=== PATIENT | male | born 1960 | race Caucasian/White ===

== ENCOUNTER 2017-02-17 07:41 | Outpatient (CLI) | payer MEDICAID, OTHER ==
[2017-02-17 12:20] LABS: BASOPHILS # (AUTO) 0.1 10^3/uL (0.0-0.1); BASOPHILS % (AUTO) 0.8 %; EOSINOPHILS # (AUTO) 0.2 10^3/uL (0.0-0.7); EOSINOPHILS % (AUTO) 2.9 %; HCT - HEMATOCRIT 44.6 % (42.0-52.0); HGB - HEMOGLOBIN 15.3 g/dL (14.0-18.0); LYMPHOCYTES # (AUTO) 2.2 10^3/uL (1.5-3.5); LYMPHOCYTES % (AUTO) 31.1 %; MEAN CORPUSCULAR HEMOGLOBIN 32.9 pg (27.0-31.0); MEAN CORPUSCULAR HGB CONC 34.4 g/dL (32.0-36.0); MEAN CORPUSCULAR VOLUME 95.9 fL (80.0-94.0); MEAN PLATELET VOLUME 7.7 fL (7.4-11.4); MONOCYTES # (AUTO) 0.6 10^3/uL (0.0-1.0); MONOCYTES % (AUTO) 8.8 %; NEUTROPHILS # (AUTO) 4.1 10^3/uL (1.5-6.6); NEUTROPHILS % (AUTO) 56.4 %; NUCLEATED RED BLOOD CELLS AUTO 0.1 /100WBC; RED BLOOD COUNT 4.66 10^6/uL (4.70-6.10); RED CELL DISTRIBUTION WIDTH 13.8 % (12.0-15.0); UNCORRECTED WHITE BLOOD COUNT 7.2 x10^3/uL; WHITE BLOOD COUNT 7.2 x10^3/uL (4.8-10.8)
[2017-02-17 12:42] LABS: ALBUMIN/GLOBULIN RATIO 1.3 (1.0-2.2); BILIRUBIN,TOTAL 1.1 mg/dL (0.2-1.0); BUN - BLOOD UREA NITROGEN 19 mg/dL (6-20); CALCIUM 9.1 mg/dL (8.5-10.3); CARBON DIOXIDE - CO2 28 mmol/L (21-32); CHLORIDE 100 mmol/L (101-111); CHOL/HDL RATIO 5.1 (<5.0); CHOLESTEROL 225 mg/dL; CREATININE 1.3 mg/dL (0.6-1.2); GFR - MDRD 57 (>89); GLUCOSE 104 mg/dL (70-100); HDL CHOLESTEROL 44 mg/dL; POTASSIUM 3.5 mmol/L (3.5-5.0); SODIUM 135 mmol/L (135-145); TOTAL PROTEIN 7.2 g/dL (6.7-8.2); TRIGLYCERIDES 407 mg/dL
[2017-02-17 13:36] LABS: LDL CHOLESTEROL,DIRECT 117 mg/dL
== END 2017-02-17 07:42 | disposition home or self-care (01) ==
LOC: LAB.N 07:41
PROVIDERS: ATTEND Physician Assistant Medical
DX: J44.9 Chronic obstructive pulmonary disease, unspecified (principal); I10 Essential (primary) hypertension; K21.9 Gastro-esophageal reflux disease without esophagitis; F31.9 Bipolar disorder, unspecified; K31.7 Polyp of stomach and duodenum; K63.5 Polyp of colon; Z79.899 Other long term (current) drug therapy
CPT/HCPCS: 36415; 80053; 80061; 84443; 85025

== ENCOUNTER 2017-05-20 08:00 | Outpatient (CLI) | payer MEDICAID ==
[2017-05-20 19:42] LABS: FOLATE 9.66 ng/mL (5.90 - >24.8)
== END 2017-05-20 08:01 | disposition home or self-care (01) ==
LOC: LAB.WCP 08:00
PROVIDERS: ATTEND Physician Assistant Medical
DX: E55.9 Vitamin D deficiency, unspecified (principal); D53.9 Nutritional anemia, unspecified; E51.9 Thiamine deficiency, unspecified
CPT/HCPCS: 36415; 82306; 82607; 82746; 84425

== ENCOUNTER 2017-11-25 14:28 | Emergency (ER) | payer MEDICAID ==
[2017-11-25 14:37] VITALS: BP 146/103
--- NOTE | 2017-11-25 15:37 | XRAY Report ---
Reason: injury Procedure Date: 11/25/2017 Accession Number: [id number] / [id number] Procedure: XR - Humerus LT CPT Code: FULL RESULT: EXAM: LEFT HUMERUS RADIOGRAPHY EXAM DATE: 11/25/2017 03:29 PM. CLINICAL HISTORY: Pain after throwing a heavy object COMPARISON: None. TECHNIQUE: 2 views. FINDINGS: Bones: No fractures or bone lesions. Smooth periosteal thickening of the lateral mid humerus is nonspecific, but likely a chronic finding. Joints: No effusions or subluxations in the visualized shoulder or elbow joints. Soft Tissues: No soft tissue swelling. IMPRESSION: No acute findings RADIA
--- NOTE | 2017-11-25 15:42 | ED Physician Documentation ---
PD HPI UPPER EXT INJURY - Stated complaint Stated Complaint: L ARM INJURY - Chief complaint Chief Complaint: Ext Problem - History obtained from History obtained from: Patient - History of Present Illness Location: Left, Arm Type of injury: Twist Where injury occurred: Home Timing - onset: How many days ago (7) Timing - duration: Days (7) Timing - details: Abrupt onset, Still present Improved by: Rest, Ice, Immobilization Worsened by: Moving, Palpating Associated symptoms: Swelling, Discolored. No: Numbness, Tingling Contributing factors: No: Anticoagulated Similar symptoms before: Has not had sx before Recently seen: Not recently seen - Additonal information Additional information: 57-year-old previously well male was throwing debris behind him with both of his arms when he picked up something with his left arm and threw it behind him. He held felt a sharp pain in his shoulder and since that time he has had a deformity to the body of the biceps muscle and a lot of swelling and ecchymosis. He has been able to use his arm at work and does have fair strength but he does have pain with certain movements. Review of Systems Constitutional: denies: Fever, Chills Eyes: denies: Decreased vision Ears: denies: Ear pain Nose: denies: Congestion Throat: denies: Sore throat Respiratory: denies: Cough GI: denies: Vomiting : denies: Dysuria Skin: denies: Rash Musculoskeletal: reports: Extremity pain. denies: Neck pain, Back pain Neurologic: denies: Generalized weakness, Focal weakness, Numbness PD PAST MEDICAL HISTORY - Allergies Allergies/Adverse Reactions: Allergies Allergy/AdvReac Type Severity Reaction Status Date / Time avocado Allergy Unknown Verified 11/25/17 14:38 PD ED PE NORMAL - Vitals Vital signs reviewed: Yes (hypertensive) - General General: Alert and oriented X 3, No acute distress, Well developed/nourished - HEENT HEENT: Atraumatic, PERRL, EOMI - Neck Neck: Supple, no meningeal sign, No bony TTP - Respiratory Respiratory: No respiratory distress - Derm Derm: Normal color, Warm and dry, No rash - Extremities Extremities: Other (There is a deformity to the biceps with overlying ecchymosis and a "teodoro" muscle to the distal biceps. There is proximal defect consistent with a biceps tendon rupture. Blood has tracked into the forearm and discolored the skin to almost black. There is no specific tenderness to the forearm and the distal n/v is intact. There is nearly normal ROM of the shoulder. 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, No motor deficit, No sensory deficit, Normal speech Eye Opening: Spontaneous Motor: Obeys Commands Verbal: Oriented GCS Score: 15 - Psych Psych: Normal mood, Normal affect Results - Vitals Vitals: Vital Signs - 24 hr 11/25/17 14:34 Temperature 36.7 C Heart Rate 78 Respiratory 18 Rate Blood Pressure 146/103 H O2 Saturation 98 Oxygen O2 Source Room air - Rads (name of study) humerus left Radiology: Prelim report reviewed (Impression: No acute findings.), EMP read indepedently, See rad report PD MEDICAL DECISION MAKING - ED course Complexity details: reviewed results, re-evaluated patient, considered differential, d/w patient ED course: 57-year-old male clinically has a ruptured biceps tendon and he is placed into a sling and given a note for modified duty to include limited use of the left arm for 2 weeks. I have given him follow-up for orthopedics. I discussed with the patient patient the conservative nature of treatment and the likelihood that he will require physical therapy to regain full strength. - Sepsis Event Vital Signs: Vital Signs - 24 hr 11/25/17 14:34 Temperature 36.7 C Heart Rate 78 Respiratory 18 Rate Blood Pressure 146/103 H O2 Saturation 98 Oxygen O2 Source Room air Departure - Departure Disposition: 01 Home, Self Care Clinical Impression: Biceps tendon rupture, proximal Qualifiers: Encounter type: initial encounter Laterality: left Qualified Code(s): S46.212A - Strain of muscle, fascia and tendon of other parts of biceps, left arm, initial encounter Condition: Stable Instructions: Biceps Tendonitis Proximal Follow-Up: Nakul Hollis PA-C [Primary Care Provider] - [facility] [Provider Group] Forms: Activity restrictions
== END 2017-11-25 16:12 | disposition home or self-care (01) ==
LOC: ED 14:28
DX: S46.212A Strain of muscle, fascia and tendon of other parts of biceps, left arm, initial encounter (principal); X50.0XXA Overexertion from strenuous movement or load, initial encounter; Y93.H2 Activity, gardening and landscaping; Y92.007 Garden or yard of unspecified non-institutional (private) residence as the place of occurrence of the external cause
CPT/HCPCS: 99282; 99283

== ENCOUNTER 2018-01-18 23:54 | Day surgery (SDC) | payer MEDICAID ==
--- NOTE | 2018-01-19 00:45 | ED Physician Documentation ---
PD HPI NVD - Stated complaint Stated Complaint: CANT SWALLOW - Chief complaint Chief Complaint: General - History obtained from History obtained from: Patient - History of Present Illness Timing - onset: How many hours ago (5-6), Today Timing - duration: Hours (He was eating steak and potatoes for dinner approximately 5-6 hours ago and while eating a piece of steak felt it get stuck. He has had this happen temporarily for a few minutes or more at a time 3 or 4 times over the last couple of months. It would pass after a short time. However this evening he continued this have the stuck feeling and he was vomiting up his saliva periodically. This continued through the evening and finally comes to the ER for evaluation. He states he has tried sips of water but vomited up. He is episodically vomiting his clear saliva. There is no blood noted. He had been feeling otherwise okay earlier in the day.) Timing - details: Abrupt onset, Still present Associated symptoms: Abdominal pain (He has a feeling of crampy pain in the lower esophagus and chest area. Its briefly improved with vomiting.). No: Fever, Hematemesis, Loss of appetite Contributing factors: No: Sick contact, Bad food, Travel Similar symptoms before: Diagnosis (esophageal blockage many years ago with scope for it. Had a dilatation at that time. Had another esophageal dilatation in 2010 when he had EGD for eval of stomach pain. It was tight but did not have achalasia symptoms at that time. He had been doing okay until the past couple of months with few brief episodes of food stuck. Now tonight with obstruction.) Recently seen: Not recently seen Review of Systems Constitutional: denies: Fever, Chills, Myalgias Nose: denies: Rhinorrhea / runny nose, Congestion Throat: denies: Sore throat Cardiac: denies: Palpitations Respiratory: denies: Dyspnea, Cough GI: reports: Nausea, Vomiting. denies: Abdominal Swelling, Constipation, Diarrhea, Hematemesis : denies: Dysuria, Frequency Neurologic: denies: Focal weakness, Numbness, Near syncope, Altered mental status, Headache Endocrine: denies: Easy bruising / bleeding PD PAST MEDICAL HISTORY - Past Medical History Cardiovascular: None Respiratory: None Neuro: None Endocrine/Autoimmune: None GI: GERD, Other (reflux and esophageal stricture in the past) - Allergies Allergies/Adverse Reactions: Allergies Allergy/AdvReac Type Severity Reaction Status Date / Time avocado Allergy Unknown Verified 01/19/18 00:07 - Living Situation Living Situation: reports: With spouse/s.o. Living Arrangement: reports: At home - Social History Does the pt smoke?: No Smoking Status: Never smoker - Family History Family history: reports: Non contributory PD ED PE NORMAL - Vitals Vital signs reviewed: Yes - General General: Alert and oriented X 3, Well developed/nourished, Other (appears uncomfortable and is having emesis of clear saliva periodically (every 10-15 minutes). ) - HEENT HEENT: Pharynx benign - Neck Neck: Supple, no meningeal sign, No adenopathy - Cardiac Cardiac: RRR, No murmur - Respiratory Respiratory: Clear bilaterally - Abdomen Abdomen: Normal bowel sounds, Soft, Non tender, Non distended, No organomegaly - Derm Derm: Normal color, Warm and dry - Extremities Extremities: No deformity, No tenderness to palpate, Normal ROM s pain, No edema, No calf tenderness / cord - Neuro Neuro: Alert and oriented X 3, No motor deficit, Normal speech - Psych Psych: Normal mood Results - Vitals Vitals: Vital Signs - 24 hr 01/19/18 01/19/18 01/19/18 00:03 01:33 01:46 Temperature 36.5 C Heart Rate 98 90 96 Respiratory 19 20 18 Rate Blood Pressure 154/100 H 153/101 H 149/97 H O2 Saturation 97 98 95 Oxygen O2 Source Room air - Labs Labs: Laboratory Tests 01/19/18 01/19/18 01:10 01:10 WBC 7.3 RBC 4.00 L Hgb 14.9 Hct 41.8 L MCV 104.5 H MCH 37.3 H MCHC 35.8 RDW 15.6 H Plt Count 230 MPV 7.1 L Neut # (Auto) 4.4 Lymph # (Auto) 1.7 [place] # (Auto) 0.7 Eos # (Auto) 0.3 Baso # (Auto) 0.2 H Absolute Nucleated RBC 0.00 Nucleated RBC % 0.0 Sodium 137 Potassium 3.8 Chloride 102 Carbon Dioxide 25 Anion Gap 10.0 BUN 8 Creatinine 1.0 Estimated GFR (MDRD) 77 L Glucose 109 H Calcium 8.9 Total Bilirubin 0.8 AST 42 ALT 41 Alkaline Phosphatase 79 Total Protein 7.4 Albumin 4.4 Globulin 3.0 Albumin/Globulin Ratio 1.5 Lipase 34 Ethyl Alcohol 24.3 PD MEDICAL DECISION MAKING - ED course Complexity details: re-evaluated patient (He is given IV fluids along with nitroglycerin, glucagon, morphine and then attempted easy gas crystals after the medication. He is still having inability to swallow even his saliva. I contacted 's office is on-call for surgery and he will come in to evaluate the patient for presumed EGD.), considered differential, d/w patient Departure - Departure Clinical Impression: Esophageal obstruction due to food impaction Vomiting Qualifiers: Vomiting type: unspecified Vomiting Intractability: unspecified Nausea presence: with nausea Qualified Code(s): R11.2 - Nausea with vomiting, unspecified Condition: Stable Record reviewed to determine appropriate education?: Yes
[2018-01-19] MEDS ORDERED: GLUCAGON 1 MG/ML VIAL IVP STA (00:54)
[2018-01-19] MEDS ORDERED: SODIUM CHLORIDE 0.9% 1,000 ML IV ONE (00:54)
[2018-01-19] MEDS ORDERED: ONDANSETRON 4 MG/2 ML VIAL IVP STA (00:54)
[2018-01-19] MEDS ORDERED: KETOROLAC 15 MG/ML VIAL IVP STA (00:54)
[2018-01-19] MEDS ORDERED: NITROGLYCERIN SL 0.4 MG TABLET SL STA (00:54)
[2018-01-19] MEDS ORDERED: WATER FOR INJECTION,STERILE 10 ML ONE (01:20)
[2018-01-19 01:22] LABS: BASOPHILS # (AUTO) 0.2 10^3/uL (0.0-0.1); BASOPHILS % (AUTO) 2.5 %; EOSINOPHILS # (AUTO) 0.3 10^3/uL (0.0-0.7); HGB - HEMOGLOBIN 14.9 g/dL (14.0-18.0); LYMPHOCYTES # (AUTO) 1.7 10^3/uL (1.5-3.5); MEAN CORPUSCULAR HEMOGLOBIN 37.3 pg (27.0-31.0); MEAN CORPUSCULAR HGB CONC 35.8 g/dL (32.0-36.0); MEAN CORPUSCULAR VOLUME 104.5 fL (80.0-94.0); MEAN PLATELET VOLUME 7.1 fL (7.4-11.4); MONOCYTES # (AUTO) 0.7 10^3/uL (0.0-1.0); MONOCYTES % (AUTO) 9.9 %; NEUTROPHILS # (AUTO) 4.4 10^3/uL (1.5-6.6); NEUTROPHILS % (AUTO) 60.6 %; PLT - PLATELET COUNT 230 10^3/uL (130-450); RED CELL DISTRIBUTION WIDTH 15.6 % (12.0-15.0); WHITE BLOOD COUNT 7.3 x10^3/uL (4.8-10.8)
[2018-01-19 01:36] LABS: ALBUMIN 4.4 g/dL (3.2-5.5); ALBUMIN/GLOBULIN RATIO 1.5 (1.0-2.2); BILIRUBIN,TOTAL 0.8 mg/dL (0.2-1.0); CALCIUM 8.9 mg/dL (8.5-10.3); TOTAL PROTEIN 7.4 g/dL (6.7-8.2)
[2018-01-19] MEDS ORDERED: MORPHINE 10 MG/ML VIAL IVP STA (02:35)
[2018-01-19] MEDS ORDERED: SUCCINYLCHOLINE 200 MG/10 ML VIAL IVP ONE (03:30)
[2018-01-19] MEDS ORDERED: MIDAZOLAM 2 MG/2 ML VIAL IVP ONE (03:30)
[2018-01-19] MEDS ORDERED: LIDOCAINE-MPF 2% 5 ML VIAL IM ONE (03:30)
[2018-01-19] MEDS ORDERED: PROPOFOL 200 MG/20 ML VIAL IVP ONE (03:30)
[2018-01-19] MEDS ORDERED: ONDANSETRON 4 MG/2 ML VIAL IVP ONE (03:30)
[2018-01-19] MEDS ORDERED: fentaNYL 100 MCG/2 ML VIAL IVP ONE (03:30)
--- NOTE | 2018-01-19 03:30 | ANESTHESIA ---
Pre-Anesthesia VS, & Labs - Diagnosis food bolus @esophagus - Procedure EGD, removal food bolus Vital Signs: Temp Pulse Resp BP Pulse Ox 36.5 C 95 18 163/104 H 97 01/19/18 00:03 01/19/18 03:06 01/19/18 03:06 01/19/18 03:06 01/19/18 03:06 Height 5 ft 11 in Weight (kg) 90.718 kg Body Mass Index 27.8 - NPO Last Food Intake: water and seltzer 0130 - Lab Results Current Lab Results: Laboratory Tests 01/19/18 01:10: Sodium 137, Potassium 3.8, Chloride 102, Carbon Dioxide 25, Anion Gap 10.0, BUN 8, Creatinine 1.0, Estimated GFR (MDRD) 77 L, Glucose 109 H, Calcium 8.9, Total Bilirubin 0.8, AST 42, ALT 41, Alkaline Phosphatase 79, Total Protein 7.4, Albumin 4.4, Globulin 3.0, Albumin/Globulin Ratio 1.5, Lipase 34, Ethyl Alcohol 24.3 01/19/18 01:10: WBC 7.3, RBC 4.00 L, Hgb 14.9, Hct 41.8 L, MCV 104.5 H, MCH 37.3 H, MCHC 35.8, RDW 15.6 H, Plt Count 230, MPV 7.1 L, Neut # (Auto) 4.4, Lymph # (Auto) 1.7, [place] # (Auto) 0.7, Eos # (Auto) 0.3, Baso # (Auto) 0.2 H, Absolute Nucleated RBC 0.00, Nucleated RBC % 0.0 Fish Bones: 01/19/18 01:10 01/19/18 01:10 Home Medications and Allergies Allergies/Adverse Reactions: Allergies Allergy/AdvReac Type Severity Reaction Status Date / Time avocado Allergy Unknown Verified 01/19/18 00:07 Anes History & Medical History - Medical History Cardiovascular: reports: None Pulmonary: reports: None Gastrointestinal: reports: GERD, Other (reflux and esophageal stricture in the past) Neuro: reports: None Endocrine/Autoimmune: reports: None Smoking Status: Never smoker - Surgical History General: Colonoscopy, EGD Exam General: Alert, Oriented x3, Cooperative Dental: Dentures full Upper Mouth Opening: Greater than 4 Fingerbreadths Neck Mobility: Normal Mallampati classification: I Thyromental Distance: greater than 6 cm Respiratory: Lungs clear, Normal breath sounds, No respiratory distress, No accessory muscle use Cardiovascular: Regular rate Neurological: Normal speech Mental/Cognitive Status: Alert/Oriented X3 Cognitive Status: Within normal limits Plan Anesthesia Type: General Consent for Procedure(s) Verified and Reviewed: Yes Code Status: Attempt Resuscitation ASA classification: 2-Mild systemic disease Is this case an emergency?: Yes
[2018-01-19] MEDS ORDERED: LIDO GARGLE 30 ML BOTTLE ONE (03:35)
--- NOTE | 2018-01-19 03:38 | CONSULTATION NOTE ---
Referring Provider Name of Referring Provider:: Thomas Moran MD Consult Date: 01/19/18 Chief Complaint - Chief Complaint Chief Complaint: Steak lodged in esophagus History of Present Illness - Admitted From Admitted From:: Not admitted - short stay - History Obtained From Records Reviewed: Yes History obtained from: Patient and Dr. Thomas Moran Exam Limitations: None - History of Present Illness HPI Comment/Other: Dr. Thomas Moran called and asked to evaluate this very pleasant 57-year-old gentleman after he ate Franks broil without his upper dentures in place because they do not fit. Even though he cut the meat up in very small pieces he states that it got lodged in his esophagus resulting in the patient being unable to tolerate his own saliva. The patient tells me that he has had numerous esophageal dilations in the past. The most recent was in 2010. He also suffers with gastroesophageal reflux disease and takes omeprazole. He denies hemat emesis, melena or hematochezia. As an aside he thinks he may have a left inguinal hernia. History - Past Medical History Cardiovascular: reports: None Respiratory: reports: None Neuro: reports: None Endocrine/Autoimmune: reports: None GI: reports: GERD, Other (reflux and esophageal stricture in the past) MRSA Hx?: No - Past Surgical History General: reports: Colonoscopy, EGD - Family & Social History Living arrangement: At home Living Situation: With spouse/s.o. - POLST Patient has POLST: No Meds/Allgy - Allergies Allergies/Adverse Reactions: Allergies Allergy/AdvReac Type Severity Reaction Status Date / Time avocado Allergy Unknown Verified 01/19/18 00:07 Review of Systems - Constitutional Constitutional: denies: Fatigue, Fever, Chills, Malaise, Weakness, Poor appetite - Eyes Eyes: denies: Pain - Ears, Nose & Throat Ears, Nose & Throat: denies: Ear pain - Cardiovascular Cariovascular: denies: Irregular heart rate, Palpitations, Chest pain - Respiratory Respiratory: denies: Cough, Sputum production, Wheezing, Hemoptysis - Gastrointestinal Gastrointestinal: reports: Nausea, Vomiting. denies: Abdominal pain, Abdominal distention, Constipation, Diarrhea, Change in bowel habits, Rectal bleeding, Black stools, Bloody stools, Bile emesis, Devang blood emesis - Genitourinary Genitourinary: denies: Dysuria - Musculoskeletal Musculoskeletal: denies: Muscle pain - Integumentary Integumentary: denies: Rash - Neurological Neurological: denies: General weakness, Focal weakness Exam - Vital Signs Reviewed Vital Signs: Yes Vital Signs: Vital Signs x48h Temp Pulse Resp BP Pulse Ox 01/19/18 03:25 92 17 160/101 H 95 01/19/18 03:06 95 18 163/104 H 97 01/19/18 02:45 108 H 20 146/99 H 98 01/19/18 01:46 96 18 149/97 H 95 01/19/18 01:33 90 20 153/101 H 98 01/19/18 00:03 36.5 C 98 19 154/100 H 97 - Physical Exam General Appearance: positive: No acute distress (Sitting with a bucket at the bedside.) Eyes Bilateral: positive: No lid inflammation, Conjunctivae nml, No scleral icterus ENT: positive: No signs of dehydration Neck: positive: Trachea midline Respiratory: positive: Chest non-tender, No respiratory distress, Breath sounds nml Cardiovascular: positive: Regular rate & rhythm Abdomen: positive: Non-tender, No organomegaly, Nml bowel sounds, No distention Skin: positive: Color nml Extremities: positive: Nml appearance Neurologic/Psychiatric: positive: Oriented x3 Conclusion/Plan - Diagnosis Diagnosis: Esophageal obstruction due to food bolus (steak) - Plan Plan: Esophagogastroduodenoscopy with possible biopsies and/or polypectomies and removal esophageal foreign body. Indications, procedure, alternatives (such as barium studies and even no procedure at all) and risks including but not limited to perforation requiring operative repair, bleeding with its risks, and were fully explained to him. I explained that his posterior oropharynx would also be anesthetized for the procedure. I explained that MAC anesthesia is associated with a higher incidence of intestinal perforation but that it will be necessary to protect his airway. Review of his history does not reveal any significant systemic disease that would contraindicate use of conscious sedation or MAC anesthesia. All questions were fully answered. Verbal and written consent was obtained. The patient in preparation for his es ophagogastroduodenoscopy will be n.p.o. 45 minutes of [id number] time spent with the patient the majority of which was spent in discussion, cooridination of his care and completion of the requisite paperwork Sabrina disclaimer: This document was created in part using voice recognition technology. Because of the inherent limitations of the system ([employer]'s [employer] user manual states that the licensee understands that speech recognition is a statistical process and that recognition errors are inherent in the process), occasional same sounding word substitutions and grammatical errors do occur and persist despite proofreading. Please read this document for context. - Lab Results Lab results reviewed: Yes Fish Bones: 01/19/18 01:10 01/19/18 01:10
[2018-01-19] MEDS ORDERED: LACTATED RINGERS 1,000 ML IV ONE (03:47)
[2018-01-19 04:51] VITALS: BP 133/76
== END 2018-01-19 02:56 | disposition home or self-care (01) ==
LOC: ED 23:54 → SDS 01-19 02:55
PROVIDERS: ATTEND Surgery
PROC: 0DJ08ZZ Inspection of Upper Intestinal Tract, Via Natural or Artificial Opening Endoscopic (ICD-10-PCS; principal; 2018-01-18)
DX: K22.2 Esophageal obstruction (principal); T18.128A Food in esophagus causing other injury, initial encounter; K22.8 Other specified diseases of esophagus; K21.9 Gastro-esophageal reflux disease without esophagitis
CPT/HCPCS: 36415; 43235; 80053; 80320; 83690; 85025; 96361; 96374; 96375; 99283; 99284; J0330; J7120

== ENCOUNTER 2018-01-25 06:00 | Outpatient (CLI) | payer MEDICAID | END 2018-01-25 06:01 | disposition home or self-care (01) | LOC: LAB.R 06:00 | PROVIDERS: ATTEND Physician Assistant Medical | DX: R10.32 Left lower quadrant pain (principal); R19.7 Diarrhea, unspecified | CPT/HCPCS: 82274; 83630; 87045; 87046; 87493 ==

== ENCOUNTER → 2018-01-25 | Outpatient (CLI) | payer MEDICAID | LOC: LAB.R 06:00 | PROVIDERS: ATTEND Physician Assistant Medical | DX: R10.32 Left lower quadrant pain (principal); R19.7 Diarrhea, unspecified | CPT/HCPCS: 87045; 87046 ==

== ENCOUNTER 2018-03-30 07:30 | Outpatient (CLI) | payer MEDICAID ==
--- NOTE | 2018-03-30 09:27 | Ultrasound Report ---
Reason: ABDOMINAL PX RUQ, DIARRHEA Procedure Date: 03/30/2018 Accession Number: [id number] / [id number] Procedure: US - Abdomen Limited CPT Code: FULL RESULT: EXAM: ABDOMEN ULTRASOUND LIMITED, RUQ EXAM DATE: 03/30/2018 08:07 AM. CLINICAL HISTORY: Abdominal pain right upper quadrant, diarrhea. COMPARISON: None. TECHNIQUE: Real-time scanning was performed with static images obtained. FINDINGS: Liver: Liver parenchyma appears echogenic and heterogeneous which limits evaluation for underlying masses, though none are seen. The right lobe of the liver measures at least 17.4 cm. Main portal vein flow: Hepatopetal. Gallbladder: The gallbladder is not overtly distended, it demonstrates a thin wall and no pericholecystic fluid and contains stones which are demonstrated to be mobile. The sonographic Kim's sign is negative. Biliary System: CBD measures 6 mm. The size is at the upper limits of normal and there is no intrahepatic ductal dilation to suggest downstream choledocholithiasis. Other: None. IMPRESSION: Echogenic liver which is most often seen with parenchymal disease such as steatosis. Cholelithiasis without evidence of cholecystitis. RADIA
== END 2018-03-30 07:31 | disposition home or self-care (01) ==
LOC: DI 07:30
PROVIDERS: ATTEND Physician Assistant Medical
DX: K80.20 Calculus of gallbladder without cholecystitis without obstruction (principal); R10.11 Right upper quadrant pain; R19.7 Diarrhea, unspecified
CPT/HCPCS: 76705

== ENCOUNTER 2018-08-01 16:32 | Outpatient (CLI) | payer MEDICAID | END 2018-08-01 16:33 | disposition critical access hospital (66) | LOC: EMS 16:32 | PROVIDERS: ATTEND Surgery | DX: R09.89 Other specified symptoms and signs involving the circulatory and respiratory systems (principal) | CPT/HCPCS: A0425; A0429 ==

== ENCOUNTER 2018-08-01 17:35 | Emergency (ER) | payer MEDICAID ==
[2018-08-01 17:40] VITALS: BP 174/116
--- NOTE | 2018-08-01 17:56 | ED Physician Documentation ---
PD HPI NVD - Stated complaint Stated Complaint: FB THROAT - Chief complaint Chief Complaint: General - History obtained from History obtained from: Patient - History of Present Illness Timing - onset: How many hours ago (3) Timing - duration: Hours (3) Timing - details: Abrupt onset (while eating barton burrito, had onset of unable to swallow. food felt stuck in esophagus, not relieved with emesis. Having to them vomit saliva periodically. Has had it before so gave some time, but not better after 3 hours so called EMS.) Associated symptoms: No: Abdominal pain, Chest pain, Hematemesis Contributing factors: No: Sick contact, Bad food Improved by: No: Vomiting Worsened by: Eating Similar symptoms before: Diagnosis (esophageal food impaction and has needed scoping in the past for it. Is on Omeprazole.) Review of Systems Constitutional: denies: Fever Nose: denies: Rhinorrhea / runny nose, Congestion Throat: denies: Sore throat Cardiac: denies: Chest pain / pressure Respiratory: denies: Cough GI: reports: Vomiting. denies: Abdominal Pain, Diarrhea PD PAST MEDICAL HISTORY - Past Medical History Past Medical History: Yes Cardiovascular: Hypertension Respiratory: COPD Neuro: None Endocrine/Autoimmune: None GI: GERD, Other : None HEENT: None Psych: None Musculoskeletal: None Derm: None - Past Surgical History Past Surgical History: Yes General: Colonoscopy, EGD - Present Medications Home Medications: Ambulatory Orders Medication Instructions Recorded Confirmed Albuterol 08/01/18 Ascorbic Acid 08/01/18 Carvedilol 08/01/18 Fluoxetine HCl 08/01/18 Gabapentin 08/01/18 Hydrochlorothiazide 08/01/18 Ibuprofen 08/01/18 08/01/18 Lamotrigine [Lamotrigine Odt] 08/01/18 Mometasone Furoate [Asmanex] 08/01/18 Multivit-Min/Iron Fum/Folic AC 08/01/18 [Objwp-Dyhdxeg-Sxgddtmz Tablet] Omeprazole 08/01/18 Tiotropium Morris [Spiriva] 08/01/18 traZODone [Desyrel] 08/01/18 - Allergies Allergies/Adverse Reactions: Allergies Allergy/AdvReac Type Severity Reaction Status Date / Time avocado Allergy Unknown Verified 08/01/18 17:40 - Social History Does the pt smoke?: Yes Smoking Status: Current every day smoker Does the pt drink ETOH?: Yes Does the pt have substance abuse?: No - Immunizations Immunizations are current?: Yes - POLST Patient has POLST: No PD ED PE NORMAL - Vitals Vital signs reviewed: Yes - General General: Alert and oriented X 3, Well developed/nourished - HEENT HEENT: Pharynx benign - Neck Neck: Supple, no meningeal sign, No adenopathy - Cardiac Cardiac: RRR, No murmur - Respiratory Respiratory: Clear bilaterally - Abdomen Abdomen: Soft, Non tender - Neuro Neuro: Alert and oriented X 3, No motor deficit, Normal speech Results - Vitals Vitals: Vital Signs - 24 hr 08/01/18 17:37 Temperature 36.7 C Heart Rate 114 H Respiratory 20 Rate Blood Pressure 174/116 H O2 Saturation 96 Oxygen O2 Source Room air PD MEDICAL DECISION MAKING - ED course Complexity details: considered differential (c/w food impaction. He resolves and is able to swallow water and is feeling better soon after arrival to ED. Had gotten some IV fluids and antiemetic/pain meds by EMS, so presume helped relax the esophagus. ), d/w patient Departure - Departure Disposition: 01 Home, Self Care Clinical Impression: Impacted esophageal foreign body Qualifiers: Encounter type: initial encounter Qualified Code(s): T18.108A - Unspecified foreign body in esophagus causing other injury, initial encounter Condition: Stable Record reviewed to determine appropriate education?: Yes Instructions: ED Foreign Body Esophageal Rslv Follow-Up: Nakul Hollis PA-C [Primary Care Provider] - Comments: Liquids only tonight. Soft food tomorrow and then progressed to regular diet after that. Stay well-hydrated. Recheck if recurrent problems. Discharge Date/Time: 08/01/18 18:08
== END 2018-08-01 18:08 | disposition home or self-care (01) ==
LOC: EDUNIT# → ED 17:35
DX: T18.128A Food in esophagus causing other injury, initial encounter (principal); I10 Essential (primary) hypertension; F17.200 Nicotine dependence, unspecified, uncomplicated
CPT/HCPCS: 99283

== ENCOUNTER 2018-09-14 11:32 | Day surgery (SDC) | payer MEDICAID ==
[2018-09-14] MEDS ORDERED: LACTATED RINGERS 1,000 ML IV ONE (12:11)
[2018-09-14] MEDS ORDERED: LIDO GARGLE 30 ML BOTTLE ONE (13:28)
[2018-09-14] MEDS ORDERED: fentaNYL 250 MCG/5 ML VIAL IVP ONE (13:45)
[2018-09-14] MEDS ORDERED: MIDAZOLAM 2 MG/2 ML VIAL IVP ONE (13:45)
[2018-09-14] MEDS ORDERED: LIDO GARGLE 30 ML BOTTLE PO ONE (13:52)
[2018-09-14] MEDS ORDERED: BENZOCAINE/TETRACAINE/BUTAMBEN 20 GM MM ONE (13:52)
[2018-09-14 14:29] VITALS: BP 128/71
== END 2018-09-14 11:33 | disposition home or self-care (01) ==
LOC: SDS 11:32
PROVIDERS: ATTEND Surgery
PROC: 0DB58ZZ Excision of Esophagus, Via Natural or Artificial Opening Endoscopic (ICD-10-PCS; principal; 2018-09-14 13:15)
DX: R13.10 Dysphagia, unspecified (principal); K21.9 Gastro-esophageal reflux disease without esophagitis; K22.8 Other specified diseases of esophagus; K29.70 Gastritis, unspecified, without bleeding; I10 Essential (primary) hypertension; F41.9 Anxiety disorder, unspecified; F31.9 Bipolar disorder, unspecified; Z79.899 Other long term (current) drug therapy; Z72.0 Tobacco use; Z87.19 Personal history of other diseases of the digestive system
CPT/HCPCS: 43239; A9270; J3010; J7120

== ENCOUNTER 2018-11-19 19:30 | Outpatient (CLI) | payer MEDICAID | END 2018-11-19 19:31 | disposition critical access hospital (66) | LOC: EMS 19:30 | PROVIDERS: ATTEND Surgery | DX: R10.9 Unspecified abdominal pain (principal); R19.7 Diarrhea, unspecified; R14.0 Abdominal distension (gaseous) | CPT/HCPCS: A0425; A0427; A0999 ==

== ENCOUNTER 2018-11-19 19:54 | Observation (INO) | payer MEDICAID ==
[2018-11-19 20:11] LABS: BASOPHILS # (AUTO) 0.1 10^3/uL (0.0-0.1); BASOPHILS % (AUTO) 0.5 %; EOSINOPHILS # (AUTO) 0.1 10^3/uL (0.0-0.7); EOSINOPHILS % (AUTO) 1.4 %; HGB - HEMOGLOBIN 15.2 g/dL (14.0-18.0); LYMPHOCYTES # (AUTO) 1.5 10^3/uL (1.5-3.5); LYMPHOCYTES % (AUTO) 15.4 %; MEAN CORPUSCULAR HEMOGLOBIN 33.1 pg (27.0-31.0); MEAN CORPUSCULAR HGB CONC 33.6 g/dL (32.0-36.0); MEAN CORPUSCULAR VOLUME 98.5 fL (80.0-94.0); MEAN PLATELET VOLUME 9.4 fL (7.4-11.4); MONOCYTES # (AUTO) 0.6 10^3/uL (0.0-1.0); MONOCYTES % (AUTO) 6.5 %; NEUTROPHILS # (AUTO) 7.2 10^3/uL (1.5-6.6); PLT - PLATELET COUNT 215 10^3/uL (130-450); RED BLOOD COUNT 4.59 10^6/uL (4.70-6.10); RED CELL DISTRIBUTION WIDTH 11.9 % (12.0-15.0); WHITE BLOOD COUNT 9.4 x10^3/uL (4.8-10.8)
[2018-11-19 20:21] LABS: ALBUMIN 4.2 g/dL (3.2-5.5); ALBUMIN/GLOBULIN RATIO 1.6 (1.0-2.2); BILIRUBIN,TOTAL 0.6 mg/dL (0.2-1.0); CALCIUM 9.3 mg/dL (8.5-10.3); TOTAL PROTEIN 6.9 g/dL (6.7-8.2)
--- NOTE | 2018-11-19 20:34 | ED Physician Documentation ---
PD HPI ABD PAIN - Stated complaint Stated Complaint: ABD PAIN - Chief complaint Chief Complaint: Abd Pain - History obtained from History obtained from: Patient - History of Present Illness Timing - onset: Enter time (06:30), Today Timing - duration: Hours Timing - details: Gradual onset, Waxing and waning Pain level max: 8 Pain level now: 5 Quality: Pain Location: All over / everywhere Improved by: Meds (given antinauseant and fentanyl en route by medics with improvement) Worsened by: Eating, Palpation Associated symptoms: Nausea, Vomiting, Diarrhea. No: Fever Similar symptoms before: Has not had sx before Recently seen: Not recently seen - Additional information Additional information: c/o abd. pain, nausea and vomiting since waking up 6:30 AM this morning. He did not have these symptoms until this morning. He has been experiencing intermittent diarrhea x 2-3 weeks. Review of Systems Constitutional: denies: Fever, Chills, Sweats Eyes: reports: Reviewed and negative Ears: reports: Reviewed and negative Nose: reports: Reviewed and negative Throat: reports: Reviewed and negative Cardiac: reports: Reviewed and negative Respiratory: reports: Reviewed and negative GI: reports: Abdominal Pain, Abdominal Swelling, Nausea, Vomiting, Diarrhea : denies: Dysuria, Frequency Skin: reports: Reviewed and negative Musculoskeletal: reports: Reviewed and negative Neurologic: reports: Reviewed and negative PD PAST MEDICAL HISTORY - Past Medical History Cardiovascular: Hypertension, High cholesterol Respiratory: COPD Neuro: None Endocrine/Autoimmune: None GI: GERD, Hiatal hernia : None HEENT: Chronic hearing loss Psych: Depression, Anxiety, Bipolar disorder Musculoskeletal: Osteoarthritis Derm: Rosacea - Past Surgical History Past Surgical History: Yes General: Hiatal hernia repair HEENT: Other - Present Medications Home Medications: Ambulatory Orders Medication Instructions Recorded Confirmed Albuterol 2 puffs PO DAILY 08/01/18 09/14/18 Ascorbic Acid 1 packet PO DAILY 08/01/18 09/14/18 Carvedilol 6.25 mg PO DAILY 08/01/18 09/14/18 Fluoxetine HCl 20 mg PO DAILY 08/01/18 09/14/18 Gabapentin 600 mg PO BID 08/01/18 09/14/18 Hydrochlorothiazide 12.5 mg PO DAILY 08/01/18 09/14/18 Ibuprofen 600 mg PO TID 08/01/18 09/14/18 Mometasone Furoate [Asmanex] 1 puffs PO DAILY PRN 08/01/18 09/14/18 Multivit-Min/Iron Fum/Folic AC 1 tab PO DAILY 08/01/18 09/14/18 [Pvetl-Qqfefju-Bxypmwqc Tablet] Omeprazole 20 mg PO DAILY 08/01/18 09/14/18 Tiotropium [place] [Spiriva] 1 puffs PO DAILY 08/01/18 09/14/18 lamoTRIgine [Lamotrigine Odt] 100 mg PO DAILY 08/01/18 09/14/18 traZODone [Desyrel] 50 mg PO DAILY 08/01/18 09/14/18 Cyanocobalamin (Vitamin B-12) 500 mcg PO DAILY 09/14/18 09/14/18 [Vitamin B-12] Folic Acid 1 mg PO DAILY 09/14/18 09/14/18 - Allergies Allergies/Adverse Reactions: Allergies Allergy/AdvReac Type Severity Reaction Status Date / Time avocado Allergy Unknown Verified 09/14/18 12:11 - Social History Does the pt smoke?: Yes Smoking Status: Current every day smoker Does the pt drink ETOH?: No Does the pt have substance abuse?: No - Immunizations Immunizations are current?: Yes - POLST Patient has POLST: No PD ED PE NORMAL - Vitals Vital signs reviewed: Yes - General General: Alert and oriented X 3, No acute distress, Well developed/nourished - HEENT HEENT: Moist mucous membranes - Neck Neck: Supple, no meningeal sign - Cardiac Cardiac: RRR, No murmur - Respiratory Respiratory: No respiratory distress, Clear bilaterally - Abdomen Abdomen: Soft - Back Back: No CVA TTP - Derm Derm: Normal color, Warm and dry - Extremities Extremities: No edema PD ED PE EXPANDED - Abdomen Abdomen: Distended, Tender to palpation (generalized). No: Rebound Results - Vitals Vitals: Vital Signs - 24 hr 11/19/18 11/19/18 11/19/18 19:59 21:47 23:00 Temperature 36.5 C Heart Rate 84 84 75 Respiratory 18 18 15 Rate Blood Pressure 146/87 H 152/86 H 133/81 H O2 Saturation 97 97 98 Oxygen O2 Source Room air - Labs Labs: Laboratory Tests 11/19/18 11/19/18 11/19/18 20:05 20:05 21:30 WBC 9.4 RBC 4.59 L Hgb 15.2 Hct 45.2 MCV 98.5 H MCH 33.1 H MCHC 33.6 RDW 11.9 L Plt Count 215 MPV 9.4 Neut # (Auto) 7.2 H Lymph # (Auto) 1.5 [place] # (Auto) 0.6 Eos # (Auto) 0.1 Baso # (Auto) 0.1 Absolute Nucleated RBC 0.00 Nucleated RBC % 0.0 Sodium 140 Potassium 3.7 Chloride 106 Carbon Dioxide 23 Anion Gap 11.0 BUN 13 Creatinine 1.0 Estimated GFR (MDRD) 76 L Glucose 111 H Calcium 9.3 Total Bilirubin 0.6 AST 28 ALT 37 Alkaline Phosphatase 64 Total Protein 6.9 Albumin 4.2 Globulin 2.7 Albumin/Globulin Ratio 1.6 Lipase 33 Urine Color Urine Clarity Urine pH Ur Specific [place] Urine Protein Urine Glucose (UA) Urine Ketones Urine Occult Blood Urine Nitrite Urine Bilirubin Urine Urobilinogen Ur Leukocyte Esterase Ur Microscopic Review Urine Culture Comments C. difficile Tox B Gene NEGATIVE 11/19/18 21:30 WBC RBC Hgb Hct MCV MCH MCHC RDW Plt Count MPV Neut # (Auto) Lymph # (Auto) [place] # (Auto) Eos # (Auto) Baso # (Auto) Absolute Nucleated RBC Nucleated RBC % Sodium Potassium Chloride Carbon Dioxide Anion Gap BUN Creatinine Estimated GFR (MDRD) Glucose Calcium Total Bilirubin AST ALT Alkaline Phosphatase Total Protein Albumin Globulin Albumin/Globulin Ratio Lipase Urine Color YELLOW Urine Clarity CLEAR Urine pH 5.0 Ur Specific [place] >=1.030 H Urine Protein NEGATIVE Urine Glucose (UA) NEGATIVE Urine Ketones NEGATIVE Urine Occult Blood NEGATIVE Urine Nitrite NEGATIVE Urine Bilirubin NEGATIVE Urine Urobilinogen 0.2 (NORMAL) Ur Leukocyte Esterase NEGATIVE Ur Microscopic Review NOT INDICATED Urine Culture Comments NOT INDICATED C. difficile Tox B Gene - Rads (name of study) CT A/P Radiology: Prelim report reviewed, See rad report PD MEDICAL DECISION MAKING - ED course Complexity details: reviewed old records, reviewed results, re-evaluated patient, considered differential, d/w patient ED course: Patient required repeated doses of fentanyl and zofran during ED stay for recurrence of nausea and pain. D/W Dr. Bray, will admit to hospitalist service. Departure - Departure Disposition: ED Place in Observation Clinical Impression: Abdominal pain Discharge Date/Time: 11/20/18 00:20
[2018-11-19] MEDS ORDERED: SODIUM CHLORIDE 0.9% 500 ML IV STA (20:54)
[2018-11-19] MEDS ORDERED: IOVERSOL 320 50 ML VIAL ONE (21:03)
[2018-11-19] MEDS ORDERED: IOVERSOL 320 100 ML VIAL IVP ONE ×2 (21:04→22:31)
[2018-11-19] MEDS ORDERED: fentaNYL 100 MCG/2 ML VIAL IVP STA ×2 (21:43→23:38)
[2018-11-19 21:49] LABS: BILIRUBIN,URINE NEGATIVE (NEGATIVE); GLUCOSE, URINE (UA) NEGATIVE (NEGATIVE); KETONES,URINE (UA) NEGATIVE (NEGATIVE); LEUKOCYTE ESTERASE, URINE NEGATIVE (NEGATIVE); NITRITE,URINE NEGATIVE (NEGATIVE); OCCULT BLOOD,URINE NEGATIVE (NEGATIVE); PROTEIN,URINE NEGATIVE (NEGATIVE); UROBILINOGEN,URINE 0.2 (NORMAL) E.U./dL (NORMAL)
[2018-11-19 21:51] LABS: CLARITY,URINE CLEAR (CLEAR)
[2018-11-19] MEDS ORDERED: IOVERSOL 320 50 ML VIAL PO ONE (22:25)
--- NOTE | 2018-11-19 22:39 | CT Report ---
Reason: abd. pain, distention Procedure Date: 11/19/2018 Accession Number: [id number] / [id number] Procedure: CT - Abdomen/Pelvis W CPT Code: FULL RESULT: EXAM: CT ABDOMEN AND PELVIS WITH CONTRAST. EXAM DATE: 11/19/2018 10:22 PM. CLINICAL HISTORY: Abdominal pain, distention. COMPARISONS: ABDOMEN LIMITED 03/30/2018 7:38 AM. TECHNIQUE: Routine helical CT imaging was performed through the abdomen and pelvis. IV contrast: OPTI 320 100 mL. Enteric contrast: Yes. Reconstructions: Coronal and sagittal. In accordance with CT protocol optimization, one or more of the following dose reduction techniques were utilized for this exam: automated exposure control, adjustment of mA and/or KV based on patient size, or use of iterative reconstructive technique. FINDINGS: Lung Bases: Unremarkable. Liver: Fatty. No suspicious masses. Gallbladder/Bile Ducts: Small calcified gallstones, otherwise unremarkable. Spleen: Unremarkable. Pancreas: Unremarkable. Adrenal Glands: Unremarkable. Kidneys: Unremarkable. No suspicious masses or hydronephrosis. Peritoneal Cavity/Bowel: Fluid-filled mildly distended proximal small bowel with relatively decompressed distal small bowel. Fluid in the colon as well. No gross bowel wall thickening. Mild free fluid and mesenteric edema. No discrete transition seen. No free air. Pelvic Organs: Bladder and prostate appear unremarkable. Vasculature: No aneurysms or other significant abnormality. Bones: No acute or aggressive appearing abnormality seen. Old left pelvic fractures. Other: None. IMPRESSION: 1. Findings most suggestive of a low-grade gastroenteritis with early/partial mid small bowel obstruction within the differential but felt to be less likely. Mild mesenteric edema and free fluid. 2. Fatty liver. 3. Cholelithiasis. RADIA
[2018-11-19] MEDS ORDERED: ONDANSETRON 4 MG/2 ML VIAL IVP PRN (23:35)
[2018-11-19] MEDS ORDERED: ONDANSETRON 4 MG/2 ML VIAL IVP STA (23:38)
[2018-11-20 00:02] LABS: BASOPHILS # (AUTO) 0.1 10^3/uL (0.0-0.1); BASOPHILS % (AUTO) 0.7 %; EOSINOPHILS # (AUTO) 0.2 10^3/uL (0.0-0.7); HGB - HEMOGLOBIN 13.6 g/dL (14.0-18.0); LYMPHOCYTES # (AUTO) 1.8 10^3/uL (1.5-3.5); LYMPHOCYTES % (AUTO) 17.3 %; MEAN CORPUSCULAR HEMOGLOBIN 33.5 pg (27.0-31.0); MEAN CORPUSCULAR HGB CONC 33.8 g/dL (32.0-36.0); MEAN PLATELET VOLUME 9.6 fL (7.4-11.4); MONOCYTES # (AUTO) 0.8 10^3/uL (0.0-1.0); MONOCYTES % (AUTO) 7.8 %; NEUTROPHILS # (AUTO) 7.4 10^3/uL (1.5-6.6); NEUTROPHILS % (AUTO) 71.7 %; PLT - PLATELET COUNT 199 10^3/uL (130-450); RED BLOOD COUNT 4.06 10^6/uL (4.70-6.10); RED CELL DISTRIBUTION WIDTH 11.9 % (12.0-15.0); WHITE BLOOD COUNT 10.3 x10^3/uL (4.8-10.8)
[2018-11-20 00:07] LABS: CALCIUM 8.6 mg/dL (8.5-10.3)
[2018-11-20] MEDS: SODIUM CHLORIDE 0.9% 1,000 ML IV SCH ×2 (00:37→08:20)
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
[2018-11-20] MEDS: SODIUM CHLORIDE FLUSH 0.9% 10 ML SYRINGE IVP SCH ×2 (01:51→08:21)
[2018-11-20] MEDS: HYDROmorphone 0.5 MG/0.5 ML SYRINGE IVP PRN ×3 (01:51→08:21)
[2018-11-20] MEDS ORDERED: PROMETHAZINE 12.5 MG TABLET PO PRN (02:01)
[2018-11-20 05:46] LABS: BASOPHILS # (AUTO) 0.1 10^3/uL (0.0-0.1); EOSINOPHILS # (AUTO) 0.3 10^3/uL (0.0-0.7); EOSINOPHILS % (AUTO) 3.5 %; HGB - HEMOGLOBIN 13.3 g/dL (14.0-18.0); LYMPHOCYTES # (AUTO) 1.9 10^3/uL (1.5-3.5); LYMPHOCYTES % (AUTO) 26.3 %; MEAN CORPUSCULAR HGB CONC 33.9 g/dL (32.0-36.0); MEAN CORPUSCULAR VOLUME 100.3 fL (80.0-94.0); MEAN PLATELET VOLUME 9.7 fL (7.4-11.4); MONOCYTES # (AUTO) 0.7 10^3/uL (0.0-1.0); MONOCYTES % (AUTO) 9.9 %; NEUTROPHILS # (AUTO) 4.2 10^3/uL (1.5-6.6); NEUTROPHILS % (AUTO) 58.9 %; PLT - PLATELET COUNT 199 10^3/uL (130-450); RED BLOOD COUNT 3.91 10^6/uL (4.70-6.10); RED CELL DISTRIBUTION WIDTH 11.9 % (12.0-15.0); WHITE BLOOD COUNT 7.2 x10^3/uL (4.8-10.8)
[2018-11-20 05:50] LABS: CALCIUM 8.4 mg/dL (8.5-10.3); CREATININE 1.1 mg/dL (0.6-1.2)
[2018-11-20] MEDS: SODIUM CHLORIDE FLUSH 0.9% 10 ML SYRINGE IVP PRN ×2 (06:20→06:21)
[2018-11-20] MEDS ORDERED: PANTOPRAZOLE 40 MG VIAL IVP SCH (07:00)
[2018-11-20] MEDS ORDERED: LAMOTRIGINE 100 MG PO SCH (09:00)
[2018-11-20] MEDS ORDERED: NON FORMULARY MED (Gabapentin [Gabapentin] 600 MG) PO SCH (09:00)
[2018-11-20] MEDS ORDERED: FLUoxetine 10 MG CAPSULE PO SCH (10:00)
--- NOTE | 2018-11-20 10:05 | Discharge Plan ---
Discharge Plan Problem Reviewed?: Yes Disposition: Home, Self Care Condition: Stable Diet: Soft Activity Restrictions: Activity as Tolerated Shower Restrictions: No Driving Restrictions: No Instruction Topics: ED Gastroenteritis Viral, ED Poisoning Food Ch Health Concerns: Admitted with abdominal pain, nausea, vomiting. Plan of Treatment: Bowel rest and rehydration. Care Goals: Advance diet as tolerated, stay hydrated. Assessment: Patient is agreeable with the plan. Additional Instructions or Follow Up instructions: Call or see your Primary Care Provider for further care. No Smoking: If you smoke, Please STOP! Call for help. Follow-up with: Nakul Hollis PA-C [Primary Care Provider] -
[2018-11-20] MEDS ORDERED: CARVEDILOL 3.125 MG TABLET PO SCH (10:30)
[2018-11-20] MEDS ORDERED: IBUPROFEN 600 MG TABLET PO ONE (12:45)
[2018-11-20 12:59] VITALS: BP 115/58
--- NOTE | 2018-11-22 12:58 | PROVIDER PROGRESS NOTE ---
Assessment/Plan - Problem List (1) Gastroenteritis Assessment/Plan: Patient is a 58 y/o male who presented to the ED with abdominal pain. Initially it was epigastric but now diffuse. It is sharp in nature and he gave it a 10/10 pain scale at onset. It started around 6:30am on 11/19/18. He had just woken up and had some coffee. It started as a upset stomach. He was also nauseous and has vomited a couple of times today. He had 2 episodes of diarrhea since presenting to the ED. He denied any recent travel, sick contact or eating something bad. He also denies any recent viral infections. He was given fentanyl in the field but required a couple more doses in the ED. He currently rates his pain 4-5/10. He denies chest pain, RUTHY, fever or chills. He has a Hx of c.diff but tested negative in the ED today. CT abdomen/pelvis done in the ED raised concern for low grade gastroenteritis/ partial SBO. It showed mild mesenteric edema and free fluid. As a result of the persistent abdominal pain requiring several doses of IV pain medication, he is being admitted in the evening of 11/19/18 for further treatment. He required iv pain meds and antiemetics and was on iv fluids for 1 day. he was started on clear liquids the following morning and tolerated that. he was discharged with advice to advance his diet to regular, as tolerated. It was felt he had a possible viral gastroenteritis, given the nausea, vomiting and diarrhea presentation. His stool was sent for evaluation and it was neg for C. diff. He was discharged on 11/20/18. (2) Hx of essential hypertension Assessment/Plan: His BP meds were continued while here. (3) Bipolar disorder Assessment/Plan: His meds were continued. (4) History of COPD Assessment/Plan: There were no signs of COPD exacerbation while here. (5) GERD (gastroesophageal reflux disease) Assessment/Plan: He was kept on his GERD meds. (6) Insomnia Assessment/Plan: Resumption of his meds was advised. - Lab Result Fish Bone Diagrams: 11/20/18 05:13 11/20/18 05:13 - Additional Planning Time Spent: 15-30 minutes Subjective - Subjective Patient Reports: Feeling Better Objective Vital Signs: Oxygen O2 Source Room air I&O (Last 24 Hrs): Intake and Output Totals x24h 11/20/18 11/21/18 11/22/18 23:59 23:59 23:59 Intake Total 964.583 Output Total 400 Balance 564.583 General: Alert, Oriented x3 HEENT: Atraumatic, Mucous membr. moist/pink Neck: Supple, No JVD Neuro: Non Focal Cardiovascular: Regular rate Respiratory: No respiratory distress, Breath sounds nml Abdomen: Normal bowel sounds Extremities: No edema - Results Results: Laboratory Results WBC 7.2 x10^3/uL (4.8-10.8) 11/20/18 05:13 RBC 3.91 10^6/uL (4.70-6.10) L 11/20/18 05:13 Hgb 13.3 g/dL (14.0-18.0) L 11/20/18 05:13 Hct 39.2 % (42.0-52.0) L 11/20/18 05:13 MCV 100.3 fL (80.0-94.0) H 11/20/18 05:13 MCH 34.0 pg (27.0-31.0) H 11/20/18 05:13 MCHC 33.9 g/dL (32.0-36.0) 11/20/18 05:13 RDW 11.9 % (12.0-15.0) L 11/20/18 05:13 Plt Count 199 10^3/uL (130-450) 11/20/18 05:13 MPV 9.7 fL (7.4-11.4) 11/20/18 05:13 Neut # (Auto) 4.2 10^3/uL (1.5-6.6) 11/20/18 05:13 Lymph # (Auto) 1.9 10^3/uL (1.5-3.5) 11/20/18 05:13 [place] # (Auto) 0.7 10^3/uL (0.0-1.0) 11/20/18 05:13 Eos # (Auto) 0.3 10^3/uL (0.0-0.7) 11/20/18 05:13 Baso # (Auto) 0.1 10^3/uL (0.0-0.1) 11/20/18 05:13 Absolute Nucleated RBC 0.00 x10^3/uL 11/20/18 05:13 Nucleated RBC % 0.0 /100WBC 11/20/18 05:13 Sodium 141 mmol/L (135-145) 11/20/18 05:13 Potassium 4.0 mmol/L (3.5-5.0) 11/20/18 05:13 Chloride 106 mmol/L (101-111) 11/20/18 05:13 Carbon Dioxide 25 mmol/L (21-32) 11/20/18 05:13 Anion Gap 10.0 (6-13) 11/20/18 05:13 BUN 11 mg/dL (6-20) 11/20/18 05:13 Creatinine 1.1 mg/dL (0.6-1.2) 11/20/18 05:13 Estimated GFR (MDRD) 69 (>89) L 11/20/18 05:13 Glucose 93 mg/dL (70-100) 11/20/18 05:13 Lactic Acid 1.1 mmol/L (0.5-2.2) 11/19/18 23:52 Calcium 8.4 mg/dL (8.5-10.3) L 11/20/18 05:13 Total Bilirubin 0.6 mg/dL (0.2-1.0) 11/19/18 20:05 AST 28 IU/L (10-42) 11/19/18 20:05 ALT 37 IU/L (10-60) 11/19/18 20:05 Alkaline Phosphatase 64 IU/L (42-121) 11/19/18 20:05 Total Protein 6.9 g/dL (6.7-8.2) 11/19/18 20:05 Albumin 4.2 g/dL (3.2-5.5) 11/19/18 20:05 Globulin 2.7 g/dL (2.1-4.2) 11/19/18 20:05 Albumin/Globulin Ratio 1.6 (1.0-2.2) 11/19/18 20:05 Lipase 33 U/L (22-51) 11/19/18 20:05 Urine Color YELLOW 11/19/18 21:30 Urine Clarity CLEAR (CLEAR) 11/19/18 21:30 Urine pH 5.0 PH (5.0-7.5) 11/19/18 21:30 Ur Specific [place] >=1.030 (1.002-1.030) H 11/19/18 21:30 Urine Protein NEGATIVE mg/dL (NEGATIVE) 11/19/18 21:30 Urine Glucose (UA) NEGATIVE mg/dL (NEGATIVE) 11/19/18 21:30 Urine Ketones NEGATIVE mg/dL (NEGATIVE) 11/19/18 21:30 Urine Occult Blood NEGATIVE (NEGATIVE) 11/19/18 21:30 Urine Nitrite NEGATIVE (NEGATIVE) 11/19/18 21:30 Urine Bilirubin NEGATIVE (NEGATIVE) 11/19/18 21:30 Urine Urobilinogen 0.2 (NORMAL) E.U./dL (NORMAL) 11/19/18 21:30 Ur Leukocyte Esterase NEGATIVE (NEGATIVE) 11/19/18 21:30 Ur Microscopic Review NOT INDICATED 11/19/18 21:30 Urine Culture Comments NOT INDICATED 11/19/18 21:30 C. difficile Tox B Gene NEGATIVE (NEGATIVE) 11/19/18 21:30 - Procedures Procedures: Procedures EXCISION OF ESOPHAGUS, ENDO (09/14/18) INSPECTION OF UPPER INTESTINAL TRACT, ENDO (01/19/18)
== END 2018-11-20 13:00 | disposition home or self-care (01) ==
LOC: EDUNIT# → ED 19:54 → MS2 23:35
PROVIDERS: ADMIT Internal Medicine; ATTEND Internal Medicine
DX: K52.9 Noninfective gastroenteritis and colitis, unspecified (principal); I10 Essential (primary) hypertension; F31.9 Bipolar disorder, unspecified; J44.9 Chronic obstructive pulmonary disease, unspecified; K21.9 Gastro-esophageal reflux disease without esophagitis; G47.00 Insomnia, unspecified; F17.290 Nicotine dependence, other tobacco product, uncomplicated
CPT/HCPCS: 36415; 74177; 80048; 80053; 81003; 83605; 83690; 85025; 87493; 96361; 96374; 96375; 96376; 99285; A9270; G0378; J1170; Q9967; 81001; 87086

== ENCOUNTER 2019-12-22 18:32 | Outpatient (CLI) | payer OTHER | END 2019-12-22 18:33 | disposition critical access hospital (66) | LOC: EMS 18:32 | PROVIDERS: ATTEND Surgery | DX: R42 Dizziness and giddiness (principal) | CPT/HCPCS: A0425; A0427 ==

== ENCOUNTER 2019-12-22 19:04 | Inpatient (IN) | payer OTHER ==
[2019-12-22] MEDS ORDERED: SODIUM CHLORIDE 0.9% 1,000 ML IV STA ×2 (20:14→21:30)
--- NOTE | 2019-12-22 20:18 | ED Physician Documentation ---
History of Present Illness - Stated complaint Stated Complaint: DIZZY - Chief complaint Chief Complaint: General - History obtained from History obtained from: Patient - Additonal information Additional information: For a month now he has been dizzy. He says whenever he gets up he feels lightheaded and feels like he might pass out. He is been nauseous with it and has vomited a couple of times. Was preceded by diarrhea which she continues to have. No blood in it. He feels like he is having a hard time staying hydrated because the diarrhea. There is no associated chest pain but there is some trouble breathing with it. Review of Systems Ten Systems: 10 systems reviewed and negative Constitutional: denies: Fever, Chills, Fatigue Nose: denies: Rhinorrhea / runny nose, Congestion Throat: denies: Sore throat Cardiac: denies: Chest pain / pressure, Palpitations, Pedal edema, Calf pain Respiratory: reports: Dyspnea. denies: Cough PD PAST MEDICAL HISTORY - Past Medical History Past Medical History: Yes Cardiovascular: Hypertension, High cholesterol Respiratory: COPD Neuro: None Endocrine/Autoimmune: None GI: GERD, Hiatal hernia : None HEENT: Chronic hearing loss Psych: Depression, Anxiety, Bipolar disorder Musculoskeletal: Osteoarthritis Derm: Rosacea - Past Surgical History Past Surgical History: Yes General: Hiatal hernia repair Ortho: Knee replacement HEENT: Other - Present Medications Home Medications: Ambulatory Orders Medication Instructions Recorded Confirmed Fluoxetine HCl 20 mg PO DAILY 08/01/18 11/20/18 Gabapentin 600 mg PO TID 08/01/18 11/20/18 Hydrochlorothiazide 12.5 mg PO DAILY 08/01/18 11/20/18 Ibuprofen 600 mg PO TID PRN 08/01/18 11/20/18 Mometasone Furoate [Asmanex] 2 puffs PO BID 08/01/18 11/20/18 Omeprazole 20 mg PO BID 08/01/18 11/20/18 Tiotropium [place] [Spiriva] 1 puffs PO DAILY 08/01/18 11/20/18 carvediloL [Carvedilol] 6.25 mg PO BID 08/01/18 11/20/18 traZODone [Desyrel] 25 mg PO DAILY PRN 08/01/18 11/20/18 Cyanocobalamin (Vitamin B-12) 500 mcg PO DAILY 09/14/18 11/20/18 [Vitamin B-12] Folic Acid 1 mg PO DAILY 09/14/18 11/20/18 Albuterol Sulfate [Albuterol 2 puffs INH Q4H PRN 11/20/18 11/20/18 Sulfate Hfa] lamoTRIgine [LaMICtal] 50 mg PO DAILY 11/20/18 11/20/18 - Allergies Allergies/Adverse Reactions: Allergies Allergy/AdvReac Type Severity Reaction Status Date / Time avocado Allergy Unknown Verified 12/22/19 19:13 - Social History Does the pt smoke?: Yes Smoking Status: Current every day smoker Does the pt drink ETOH?: Yes ETOH Use: Beer Does the pt have substance abuse?: No - Family History Family history: reports: Non contributory - Immunizations Immunizations are current?: Yes - POLST Patient has POLST: No PD ED PE NORMAL - Vitals Vital signs reviewed: Yes - General General: Alert and oriented X 3, No acute distress - HEENT HEENT: PERRL, EOMI - Neck Neck: Supple, no meningeal sign, No bony TTP - Cardiac Cardiac: RRR, No murmur - Respiratory Respiratory: No respiratory distress, Clear bilaterally - Abdomen Abdomen: Normal bowel sounds, Soft, Non tender - Back Back: No CVA TTP, No spinal TTP - Derm Derm: Normal color, Warm and dry - Extremities Extremities: No edema, No calf tenderness / cord - Neuro Neuro: Alert and oriented X 3, No motor deficit, No sensory deficit, Normal speech Eye Opening: Spontaneous Motor: Obeys Commands Verbal: Oriented GCS Score: 15 Results - Vitals Vitals: Vital Signs - 24 hr 12/22/19 19:05 Temperature 36.6 C Heart Rate 78 Respiratory 18 Rate Blood Pressure 168/74 H O2 Saturation 99 Oxygen O2 Source Room air - EKG (time done) 2002 Rate: Rate (enter#) (89) Rhythm: NSR (With frequent PVCs) Intervals: Other (Intraventricular conduction delay favoring an atypical left bundle block with other nonspecific changes.) - Labs Labs: Laboratory Tests 12/22/19 12/22/19 12/22/19 20:11 20:11 20:11 WBC 9.2 RBC 3.50 L Hgb 11.5 L Hct 29.3 L MCV 83.7 MCH 32.9 H MCHC 39.2 H RDW 12.4 Plt Count 180 MPV 10.7 Neut # (Auto) 6.9 H Lymph # (Auto) 1.1 L Barber # (Auto) 1.0 Eos # (Auto) 0.1 Baso # (Auto) 0.0 Absolute Nucleated RBC 0.00 Nucleated RBC % 0.0 VBG pH VBG pCO2 VBG pO2 VBG HCO3 VBG Total CO2 VBG O2 Saturation VBG Base Excess Sodium 117 L* Potassium < 1.5 L* Chloride 63 L* Carbon Dioxide 38 H Anion Gap 16.0 H BUN 14 Creatinine 1.0 Estimated GFR (MDRD) 76 L Glucose 134 H Calcium 8.3 L Phosphorus Magnesium Total Bilirubin 3.4 H AST 35 ALT 28 Alkaline Phosphatase 72 Troponin I High Sens 21.8 H* Total Protein 6.2 L Albumin 3.5 Globulin 2.7 Albumin/Globulin Ratio 1.3 Lipase 46 Ethyl Alcohol < 5.0 12/22/19 12/22/19 21:10 21:10 WBC RBC Hgb Hct MCV MCH MCHC RDW Plt Count MPV Neut # (Auto) Lymph # (Auto) Barber # (Auto) Eos # (Auto) Baso # (Auto) Absolute Nucleated RBC Nucleated RBC % VBG pH 7.596 H VBG pCO2 39.8 L VBG pO2 40.4 VBG HCO3 37.8 H VBG Total CO2 39.1 H VBG O2 Saturation 79.7 VBG Base Excess 14.9 H Sodium 116 L* Potassium < 1.5 L* Chloride 66 L* Carbon Dioxide 37 H Anion Gap 13.0 BUN 14 Creatinine 0.9 Estimated GFR (MDRD) 86 L Glucose 118 H Calcium 8.0 L Phosphorus 2.6 Magnesium 1.3 L Total Bilirubin AST ALT Alkaline Phosphatase Troponin I High Sens Total Protein Albumin Globulin Albumin/Globulin Ratio Lipase Ethyl Alcohol - Rads (name of study) 1v chest for line Radiology: EMP read contemporaneously [place] [place] [facility] [place] Procedures - Central Line Central Line Preparation: Consent Obtained, Time out completed, Ultrasound used, Sterile prep and drape Central line location: Right IJ Central line type: Triple lumen (7 portuguese) Central line aftercare: Chlorhexidine disc placed, Secured, Placement confirmed, Bundle checklist complete, Pt tolerated well PD MEDICAL DECISION MAKING - ED course ED course: 59-year-old gentleman presents with nonspecific symptoms but is found to have profound electrolyte abnormalities likely from beer potomania and lack of oral intake. Labs were confirmed on second draw, he was started on potassium repletion and hydration. Hospitalist asked me to place a central line given the need for frequent blood draws and multiple infusions and this was done without issue. - Critical Care Time(min): 40 Time Includes: Direct patient care, Review records, Reassess patient, Document care, Coordinate care, Medical consult Data interpretation: Labs, Pulse ox Procedures excluded from critical care time: Central IV, EKG Departure - Departure Disposition: 66 [facility] DC/Xfer Clinical Impression: Metabolic alkalosis, Dizziness, Hypokalemia, Hyponatremia Diarrhea Qualifiers: Diarrhea type: unspecified type Qualified Code(s): R19.7 - Diarrhea, unspecified Condition: Critical
[2019-12-22 20:46] LABS: ALBUMIN 3.5 g/dL (3.2-5.5); ALBUMIN/GLOBULIN RATIO 1.3 (1.0-2.2); ALKALINE PHOSPHATASE 72 IU/L (42-121); ALT ALANINE AMINOTRANSFERASE 28 IU/L (10-60); AST ASPARTATE AMINOTRANSFERASE 35 IU/L (10-42); BILIRUBIN,TOTAL 3.4 mg/dL (0.2-1.0); BUN - BLOOD UREA NITROGEN 14 mg/dL (6-20); CALCIUM 8.3 mg/dL (8.5-10.3); CARBON DIOXIDE - CO2 38 mmol/L (21-32); GLUCOSE 134 mg/dL (70-100); LIPASE 46 U/L (22-51); TOTAL PROTEIN 6.2 g/dL (6.7-8.2)
[2019-12-22 20:47] LABS: CHLORIDE 63 mmol/L (101-111); SODIUM 117 mmol/L (135-145)
[2019-12-22] MEDS ORDERED: POTASSIUM CHLOR 10 MEQ/100 ML 10 MEQ/100 ML BAG IV ONE ×2 (20:47→20:48)
[2019-12-22 20:53] LABS: BASOPHILS % (AUTO) 0.2 %; EOSINOPHILS # (AUTO) 0.1 10^3/uL (0.0-0.7); EOSINOPHILS % (AUTO) 0.9 %; HGB - HEMOGLOBIN 11.5 g/dL (14.0-18.0); LYMPHOCYTES # (AUTO) 1.1 10^3/uL (1.5-3.5); LYMPHOCYTES % (AUTO) 11.5 %; MEAN CORPUSCULAR HEMOGLOBIN 32.9 pg (27.0-31.0); MEAN CORPUSCULAR HGB CONC 39.2 g/dL (32.0-36.0); MEAN CORPUSCULAR VOLUME 83.7 fL (80.0-94.0); MEAN PLATELET VOLUME 10.7 fL (7.4-11.4); MONOCYTES % (AUTO) 11.1 %; NEUTROPHILS # (AUTO) 6.9 10^3/uL (1.5-6.6); NEUTROPHILS % (AUTO) 75.2 %; PLT - PLATELET COUNT 180 10^3/uL (130-450); RED CELL DISTRIBUTION WIDTH 12.4 % (12.0-15.0); WHITE BLOOD COUNT 9.2 x10^3/uL (4.8-10.8)
[2019-12-22] MEDS ORDERED: THIAMINE INJ 100 MG in SODIUM CHLORIDE 0.9% 50 ML IV STA (20:54)
[2019-12-22] MEDS ORDERED: THIAMINE 100 MG/1 ML 2 ML MDV ONE (21:08)
[2019-12-22 21:24] LABS: VBG PCO2 39.8 mmHg (41-51); VBG PH 7.596 (7.31-7.41)
[2019-12-22 21:25] LABS: VBG BASE EXCESS 14.9 mmol/L (-2 - +2); VBG PO2 40.4 mmHg (25-47); VBG TOTAL CO2 39.1 mmol/L (24-29)
[2019-12-22 21:28] LABS: BUN - BLOOD UREA NITROGEN 14 mg/dL (6-20); CARBON DIOXIDE - CO2 37 mmol/L (21-32); CREATININE 0.9 mg/dL (0.6-1.2); GLUCOSE 118 mg/dL (70-100); MAGNESIUM 1.3 mg/dL (1.7-2.8); PHOSPHORUS 2.6 mg/dL (2.5-4.6)
[2019-12-22 21:29] LABS: SODIUM 116 mmol/L (135-145)
[2019-12-22 21:30] LABS: CHLORIDE 66 mmol/L (101-111)
[2019-12-22] MEDS ORDERED: POTASSIUM CHLOR 20 MEQ/100 ML 20 MEQ/100 ML BAG IV ONE (21:37)
[2019-12-22] MEDS ORDERED: POTASSIUM CHLORIDE 20 MEQ TABLET PO STA (21:38)
--- NOTE | 2019-12-22 21:41 | HISTORY & PHYSICAL EXAMINATION ---
Chief Complaint - Chief Complaint Chief Complaint: Dizzy History of Present Illness - Admitted From Admitted From:: Home - History Obtained From Records Reviewed: Yes History obtained from: Patient, ER Physician, EMR - History of Present Illness HPI Comment/Other: This is a 59-year-old male with a past medical history significant for bipolar disorder, depression, hypertension, alcohol abuse, COPD who presents today complaining of dizziness and lightheadedness for the past month. He states his symptoms began about 1 month ago and have steadily progressed. He reports that whenever he gets out of bed, he feels dizzy and lightheaded and that he has fallen a couple times because of this. He reports no loss of consciousness. He states he may have hit his head one time on his refrigerator slightly when he fell otherwise denies any trauma to his head. He reports no palpitations. Denies chest pain but reports some dyspnea. He states that over the past 3 weeks or so, he has had persistent nausea and nonbloody emesis. He reports no associated abdominal pain. He states he has had poor oral intake over this past 3 weeks because of this. He states he had no food at all today or yesterday and his oral intake has been really limited for past 3 weeks. He tried some water but he would vomit that up. He states that he is able to keep liquor down. He has been drinking 2-3 [place] a day for around the past 6 weeks. His last drink was this morning. He states he had been sober for about 2 years but began drinking again about 6 weeks ago because of COVID and lack of personal interaction. He had been going to the [facility] where he began to drink alcohol again. He reports no NSAID use. He is on omeprazole at home. He reports no diarrhea or constipation. He states he feels thirsty at this time. He does take hydrochlorothiazide for blood pressure. He is also on Lamictal and fluoxetine for his history of bipolar disorder and depression. In the emergency department, he was found to be afebrile with a temperature of 36.6 C. His heart rate was 78. Blood pressure is 168/74. He was not tachypneic and was saturating well on room air. In the emergency department, labs were significant for sodium of 116. His potassium was less than 1.5. His chloride was 66. His bicarbonate was elevated at 37. Magnesium was 1.3. VBG revealed a pH of 7.596 with a PCO2 of 39.8 and a bicarbonate of 37.8. Initial troponin was 21.8. Given the above findings, medicine was consulted for admission. I did discuss goals of care with the patient and he would like to be a full code. History - Past Medical History Cardiovascular: reports: Hypertension, High cholesterol Respiratory: reports: COPD Neuro: reports: None Endocrine/Autoimmune: reports: None GI: reports: GERD, Hiatal hernia : reports: None HEENT: reports: Chronic hearing loss Psych: reports: Depression, Anxiety, Bipolar disorder Musculoskeletal: reports: Osteoarthritis Derm: reports: Rosacea MRSA Hx?: No - Past Surgical History General: reports: Hiatal hernia repair Ortho: reports: Knee replacement - Family & Social History Family History Comment/Other: He reports no family history that he is aware of in his parents and siblings. Chart review notes that his father had oropharyngeal cancer. Living arrangement: At home Living Situation: With family Social History Notes: Patient lives at home with his mother. 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 He has a history of alcohol abuse in the past but was sober for 2 years. He began drinking about 6 weeks ago due to COVID and lack of social interaction. He has been drinking 2-3 alcoholic beverages a day. He smokes about a half a pack a day. He reports smoking for at least 30 years. Reports no illicit drug use. - POLST Patient has POLST: No Meds/Allgy - Home Medications Home Medications: Ambulatory Orders Medication Instructions Recorded Confirmed Fluoxetine HCl 20 mg PO DAILY 08/01/18 11/20/18 Gabapentin 600 mg PO TID 08/01/18 11/20/18 Hydrochlorothiazide 12.5 mg PO DAILY 08/01/18 11/20/18 Ibuprofen 600 mg PO TID PRN 08/01/18 11/20/18 Mometasone Furoate [Asmanex] 2 puffs PO BID 08/01/18 11/20/18 Omeprazole 20 mg PO BID 08/01/18 11/20/18 Tiotropium [place] [Spiriva] 1 puffs PO DAILY 08/01/18 11/20/18 carvediloL [Carvedilol] 6.25 mg PO BID 08/01/18 11/20/18 traZODone [Desyrel] 25 mg PO DAILY PRN 08/01/18 11/20/18 Cyanocobalamin (Vitamin B-12) 500 mcg PO DAILY 09/14/18 11/20/18 [Vitamin B-12] Folic Acid 1 mg PO DAILY 09/14/18 11/20/18 Albuterol Sulfate [Albuterol 2 puffs INH Q4H PRN 11/20/18 11/20/18 Sulfate Hfa] lamoTRIgine [LaMICtal] 50 mg PO DAILY 11/20/18 11/20/18 - Allergies Allergies/Adverse Reactions: Allergies Allergy/AdvReac Type Severity Reaction Status Date / Time avocado Allergy Unknown Verified 12/22/19 19:13 Review of Systems - Constitutional Constitutional: reports: Fatigue, Malaise, Weakness, Poor appetite. denies: Fever, Chills - Eyes Eyes: denies: Blurred vision - Cardiovascular Cariovascular: reports: Lightheadedness. denies: Chest pain, Edema, Syncope, Exertional dyspnea, Decr. exercise tolerance - Respiratory Respiratory: reports: SOB at rest. denies: Cough - Gastrointestinal Gastrointestinal: reports: Nausea, Vomiting, Reflux/heartburn, Poor appetite. denies: Abdominal pain, Constipation, Diarrhea, Black stools, Bloody stools, Bile emesis, Devang blood emesis, Coffee grounds emesis - Genitourinary Genitourinary: denies: Dysuria, Frequency, Urgency, Hematuria - Musculoskeletal Musculoskeletal: denies: Muscle pain, Muscle weakness - Integumentary Integumentary: denies: Rash - Neurological Neurological: reports: General weakness, Headache, Dizziness, Numbness. denies: Focal weakness - Psychiatric Psychiatric: reports: Depression - Hematologic/Lymphatic Hematologic/Lymphatic: denies: Bleeding tendencies - All Other Systems All Other Systems: reports: Reviewed and negative Prior Level of Functionality: He is independent with his ADL's. Exam - Vital Signs Reviewed Vital Signs: Yes Vital Signs: Vital Signs x48h Temp Pulse Resp BP Pulse Ox 12/22/19 19:05 36.6 C 78 18 168/74 H 99 - Physical Exam General Appearance: positive: No acute distress, Alert Eyes Bilateral: positive: Normal inspection, Conjunctivae nml ENT: positive: Dry mucous membranes, Other (He has white plaques over his tongue.). negative: No signs of dehydration Neck: positive: Nml inspection Respiratory: positive: No respiratory distress. negative: Wheezes, Rales Cardiovascular: positive: Regular rate & rhythm, Extrasystoles. negative: Irregularly irregular, Tachycardia, Bradycardia, Systolic murmur Abdomen: positive: Non-tender, Nml bowel sounds, No distention. negative: Tenderness, Guarding, Rebound Skin: positive: Warm, Dry Extremities: positive: Full ROM, No pedal edema Neurologic/Psychiatric: positive: Oriented x3, Motor nml. negative: Disoriented to person, Disoriented to place, Disoriented to time Conclusion/Plan - Problem List (1) Hyponatremia Conclusion/Plan: Suspect this is likely hypovolemic hyponatremia secondary to the use of thiazide as well as nausea and vomiting. He does appear slightly hypovolemic on exam. His sodium is 116 on admission. This is likely contributing to his overall weakness as well as the hypokalemia. He received a liter of normal saline in the emergency department. We will continue him on maintenance IV fluids with normal saline at 100 cc an hour. We will recheck a BMP in 4 hours and once again in the morning. The goal correction will be approximately 6 to 8 mmol/L over next 24 hours. We will continue to hold his home hydrochlorothiazide. We will put him on a free water restriction if his soidum is not improved with IV hydration as this could possibly end up being euvolemic hyponatremia from beer portal robinson/SIADH. Will follow up the urine sodium. Urine osmolality has been ordered but unfortunately this is a send out lab and will not be available for a few days. We will check TSH and a.m. cortisol. (2) Hypokalemia Conclusion/Plan: This is likely multifactorial and due to poor oral intake, the use of a thiazide diuretic, and his significant metabolic alkalosis. His potassium is less than 1.5. This is likely the cause of his overall generalized weakness as well as his EKG changes. His magnesium is also decreased at 1.3. At this time, we will replace his magnesium orally and intravenously. We will replace his potassium aggressively orally and intravenously and fortunately a central line was placed by the ER provider. We will recheck a BMP this evening. We will monitor on telemetry. Hold his hydrochlorothiazide. Will consider checking aldosterone and renin activity if there is no improvement. (3) Metabolic alkalosis Conclusion/Plan: Suspect this is likely secondary to his nausea and vomiting as well as the hypokalemia and the use a thiazide diuretic. His bicarbonate is elevated at nearly 40 and his pH is nearly 7.6 on venous blood gas. Urine chloride has been ordered and is pending. We will start him on gentle hydration with IV saline. We will also start him on Protonix IV. We will continue to monitor his BMP. (4) Nausea and vomiting Conclusion/Plan: Suspect this may be secondary to alcoholic gastritis. He reports poor oral intake over the past few weeks with persistent nausea and vomiting. He is not on NSAIDs at home but has been consuming alcohol. He does have oral candidiasis but a low suspicion for esophageal candidiasis at this time. We will place him on Protonix IV. Diet as tolerated. We will hold off on Zofran and other antiemetics given his significantly prolonged QTC. We will initiate these once his QTC improves after his potassium is replaced. If he has persistent nausea and vomiting then will consult general surgery for endoscopy. (5) Hypomagnesemia Conclusion/Plan: His magnesium is decreased at 1.3. We will replace this intravenously and orally prior to potassium supplementation as this will need to be corrected b efore his potassium can be corrected. We will continue to monitor on a daily basis. (6) Abnormal EKG Conclusion/Plan: EKG reveals a sinus rhythm with a prolonged UT interval as well as frequent PVCs and a prolonged QTC of 661. His QRS is also prolonged at 127. There also appears to be ST depressions in the inferior leads and U waves present as well. This is likely due to his significant hypokalemia. His initial troponin is mildly elevated. At this time, we will replace his potassium aggressively. We will monitor him on telemetry. Trend his troponins. (7) Alcohol abuse Conclusion/Plan: Alcohol level is less than 5 on admission. His last drink was reportedly this morning. We will start him on oral thiamine and multivitamin. We will monitor for signs of withdrawal. Social work consult to assist with alcohol cessation. (8) Oral candidiasis Conclusion/Plan: This is likely due to his inhaled corticosteroid. We will start him on oral nystatin. We will hold off on fluconazole given his prolonged QTC. If his nausea and vomiting persists then we will need to consider an endoscopy to rule out esophageal candidiasis. (9) Hx of essential hypertension Conclusion/Plan: He was initially hypertensive but is now normotensive with a blood pressure of 108/68. We will hold his home hydrochlorothiazide given the hyponatremia. We will continue his home carvedilol. Will consider adding amlodipine if a second antihypertensive is warranted. (10) History of COPD Conclusion/Plan: Stable and not in exacerbation. Will continue his home inhalers. (11) Depression Conclusion/Plan: Stable. We will hold his home fluoxetine at this time until we have urine sodium and urine osmolality back to ensure this is not potentially SIADH. (12) Bipolar disorder Conclusion/Plan: Stable. We will continue his home Lamictal. - Lab Results Lab results reviewed: Yes Fish Bones: 12/22/19 20:11 12/22/19 21:10 - EKG Results EKG Interpreted Independently: Yes EKG Comparison: No prior EKG EKG Findings: EKG reveals a sinus rhythm with PVCs and what appears to be early repolarization. He does have ST depressions in the inferior leads. U waves appear to be present. His QTC is quite prolonged at over 600. Core Measures - Anticipated LOS I expect patient to be DC'd or transferred within 96 hours.: Yes - Issues Hospital Issues and Management Plan: 59-year-old male who presents complaining of dizziness for the past month found to have significant electrolyte derangements including hyponatremia, hypokalemia and hypomagnesemia as well as metabolic alkalosis. We will admit him to the intensive care unit for replacement of electrolytes and gentle IV hydration for hyponatremia. - DVT/VTE - Prophylaxis VTE/DVT Device ordered at admit?: Yes VTE/DVT Prophylaxis med ordered at admit?: Yes
--- NOTE | 2019-12-22 21:49 | XRAY Report ---
PROCEDURE: Chest for Line Placement INDICATIONS: Central line placement TECHNIQUE: One view of the chest was acquired. COMPARISON: None FINDINGS: Surgical changes and devices: Central line terminates in the SVC above the cavoatrial junction.. Lungs and pleura: No pleural effusions or pneumothorax. Lungs are clear. Mediastinum: Mediastinal contours appear normal. Heart size is normal. Bones and chest wall: No suspicious bony lesions. Overlying soft tissues appear unremarkable. IMPRESSION: Central line terminates in the SVC above the cavoatrial junction. Reviewed by: Casey Jacques MD on 12/22/2019 9:48 PM PDT Approved by: Casey Jacques MD on 12/22/2019 9:48 PM PDT Station ID: [id number]
[2019-12-22] MEDS ORDERED: MAGNESIUM SULFATE 2 GRAM 2 GM/50 ML BAG IV ONE (21:54)
[2019-12-22] MEDS ORDERED: SODIUM CHLORIDE 0.9% 1,000 ML IV SCH (22:00)
[2019-12-22] MEDS ORDERED: MAGNESIUM OXIDE 400 MG TABLET PO SCH (22:00)
[2019-12-22] MEDS ORDERED: PANTOPRAZOLE 40 MG VIAL IVP STA (22:20)
[2019-12-22] MEDS ORDERED: NICOTINE 14 MG PATCH TOP STA (22:52)
[2019-12-22] MEDS ORDERED: IPRATROPIUM/ALBUTEROL 3 ML NEB INH PRN (22:52)
[2019-12-22] MEDS: SODIUM CHLORIDE FLUSH 0.9% 10 ML SYRINGE IVP SCH (22:56)
[2019-12-22 22:57] LABS: BILIRUBIN,URINE NEGATIVE (NEGATIVE); GLUCOSE, URINE (UA) NEGATIVE (NEGATIVE); KETONES,URINE (UA) TRACE mg/dL (NEGATIVE); LEUKOCYTE ESTERASE, URINE NEGATIVE (NEGATIVE); NITRITE,URINE NEGATIVE (NEGATIVE); OCCULT BLOOD,URINE TRACE-LYSE (NEGATIVE); PH,URINE 6.5 PH (5.0-7.5); PROTEIN,URINE TRACE mg/dL (NEGATIVE); UROBILINOGEN,URINE 2 E.U./dL (NORMAL)
[2019-12-22 22:58] LABS: CLARITY,URINE CLEAR (CLEAR)
[2019-12-22] MEDS: POTASSIUM CHLOR 20 MEQ/100 ML 20 MEQ/100 ML BAG IV ONE (23:30)
[2019-12-23] MEDS: NYSTATIN 500000 UNITS/5 ML UDC PO SCH ×5 (00:11→21:08)
[2019-12-23] MEDS: carvediloL 3.125 MG TABLET PO SCH ×3 (00:11→20:58)
[2019-12-23 00:12] LABS: CALCIUM 8.1 mg/dL (8.5-10.3); CREATININE 0.9 mg/dL (0.6-1.2)
[2019-12-23] MEDS: POTASSIUM CHLOR 20 MEQ/100 ML 20 MEQ/100 ML BAG IV ONE (00:41)
[2019-12-23] MEDS: NS W/20 MEQ KCL 1,000 ML IV SCH ×3 (00:43→21:00)
[2019-12-23] MEDS ORDERED: POTASSIUM CHLORIDE 20 MEQ/15 ML UDC PO SCH ×2 (01:00→06:00)
[2019-12-23 05:12] LABS: CALCIUM 7.7 mg/dL (8.5-10.3); CREATININE 0.9 mg/dL (0.6-1.2); MAGNESIUM 2.1 mg/dL (1.7-2.8); PHOSPHORUS 2.6 mg/dL (2.5-4.6)
[2019-12-23] MEDS ORDERED: POTASSIUM CHLOR 20 MEQ/100 ML 20 MEQ/100 ML BAG IV ONE ×2 (05:16→06:30)
[2019-12-23 05:26] LABS: BASOPHILS % (AUTO) 0.3 %; EOSINOPHILS % (AUTO) 0.5 %; HGB - HEMOGLOBIN 9.3 g/dL (14.0-18.0); LYMPHOCYTES # (AUTO) 1.3 10^3/uL (1.5-3.5); LYMPHOCYTES % (AUTO) 22.1 %; MEAN CORPUSCULAR HEMOGLOBIN 32.9 pg (27.0-31.0); MEAN CORPUSCULAR HGB CONC 38.4 g/dL (32.0-36.0); MEAN CORPUSCULAR VOLUME 85.5 fL (80.0-94.0); MEAN PLATELET VOLUME 10.9 fL (7.4-11.4); MONOCYTES # (AUTO) 0.9 10^3/uL (0.0-1.0); MONOCYTES % (AUTO) 14.7 %; NEUTROPHILS # (AUTO) 3.7 10^3/uL (1.5-6.6); NEUTROPHILS % (AUTO) 61.9 %; PLT - PLATELET COUNT 139 10^3/uL (130-450); RED BLOOD COUNT 2.83 10^6/uL (4.70-6.10); RED CELL DISTRIBUTION WIDTH 12.5 % (12.0-15.0)
[2019-12-23] MEDS: GABAPENTIN 300 MG CAPSULE PO SCH ×3 (06:19→20:58)
[2019-12-23] MEDS: PANTOPRAZOLE 40 MG VIAL IVP SCH (06:47)
[2019-12-23] MEDS: lamoTRIgine 100 MG TABLET PO SCH (08:37)
[2019-12-23] MEDS: THIAMINE 100 MG TABLET PO SCH (08:38)
[2019-12-23] MEDS: ENOXAPARIN 40 MG/0.4 ML SYRINGE SUBQ SCH (08:38)
[2019-12-23] MEDS: SODIUM CHLORIDE FLUSH 0.9% 10 ML SYRINGE IVP SCH ×2 (08:38→16:40)
[2019-12-23] MEDS: FOLIC ACID 1 MG TABLET PO SCH (08:42)
[2019-12-23] MEDS: MULTIVITAMIN TABLET PO SCH (08:42)
[2019-12-23] MEDS ORDERED: amLODIPine 5 MG TABLET PO SCH (09:00)
[2019-12-23 10:19] LABS: CALCIUM 8.3 mg/dL (8.5-10.3)
[2019-12-23] MEDS: POTASSIUM CHLORIDE 20 MEQ TABLET PO SCH ×3 (11:59→18:16)
--- NOTE | 2019-12-23 14:22 | PHARMACY PROGRESS NOTE ---
- Best Possible Medication History Admit Date and Time: 12/22/192132 Processed by: Pharmacy Medication History completed: Yes Patient Interview: Completed Secondary Source(s): Physician records, Pharmacy records (PATIENT ABLE TO CONFIRM HOME MEDICATIONS) As the person ultimately responsible for medication therapy, providers are able to order a medication from an existing home medication list in [facility] via the "Reconcile Routine" prior to Confirmation of that medication by manager technical support. Such practice is discouraged except when the physician, in their clinical judgment, deems that a medical need exists for a medication without regard to previous use.
[2019-12-23 16:53] LABS: CALCIUM 8.2 mg/dL (8.5-10.3)
--- NOTE | 2019-12-23 17:26 | PROVIDER PROGRESS NOTE ---
Subjective - Prog Note Date Prog Note Date: 12/23/19 Prog Note Time: 17:32 - Subjective Pt reports feeling: Improved Subjective: He is steadily improving throughout the day with regards to electrolytes. He is eating and keeping his food down. Diarrhea is down to just 2 bowel movements today. No abdominal pain, fever, chills. Had a few beats of V. tach that were asymptomatic. Current Medications - Current Medications Current Medications: Active Medications Acetaminophen (Tylenol) 650 mg PO Q4HR PRN PRN Reason: Pain 1 to 4 Albuterol/Ipratropium (Duoneb) 3 ml INH Q4HR PRN PRN Reason: Wheezing Carvedilol (Coreg) 6.25 mg PO BID [facility] Enoxaparin Sodium (Lovenox) 40 mg SUBQ DAILY [facility] Last Admin: 12/23/19 08:38 Dose: 40 mg Documented by: Folic Acid () 1 mg PO DAILY [facility] Last Admin: 12/23/19 08:42 Dose: 1 mg Documented by: Gabapentin (Neurontin) 600 mg PO TID [facility] Last Admin: 12/23/19 14:55 Dose: Not Given Documented by: Potassium Chloride/Sodium Chloride (Normal Saline 0.9% W/20 Meq Kcl) 1,000 mls @ 100 mls/hr IV .Q10H [facility] Last Infusion: 12/23/19 15:00 Dose: 100 mls/hr Documented by: Lamotrigine (Lamictal) 50 mg PO DAILY [facility] Last Admin: 12/23/19 08:37 Dose: 50 mg Documented by: Magnesium Oxide (Mag Ox) 800 mg PO ONCE [facility] Stop: 12/23/19 21:59 Last Admin: 12/22/19 22:54 Dose: 800 mg Documented by: Multivitamins (Theragran) 1 tab PO DAILYWM [facility] Last Admin: 12/23/19 08:42 Dose: 1 tab Documented by: Nystatin (Mycostatin) 5 ml PO QID [facility] Last Admin: 12/23/19 12:57 Dose: 5 ml Documented by: Pantoprazole Sodium (Protonix) 40 mg IVP QDAC [facility] Last Admin: 12/23/19 06:47 Dose: 40 mg Documented by: Potassium Chloride (K-Dur) 40 meq PO Q3H [facility] Stop: 12/23/19 18:01 Last Admin: 09/20/20 15:09 Dose: 40 meq Documented by: Sodium Chloride (Normal Saline Flush 0.9%) 10 ml IVP 0100,0900,1700 [facility] Last Admin: 12/23/19 16:40 Dose: 10 ml Documented by: Sodium Chloride (Normal Saline Flush 0.9%) 10 ml IVP PRN PRN PRN Reason: NEEDED PER PROVIDER ORDERS Thiamine HCl (Vitamin B-1) 100 mg PO DAILY [facility] Last Admin: 12/23/19 08:38 Dose: 100 mg Documented by: Fluoxetine HCl 20 mg PO DAILY 08/01/18 Hydrochlorothiazide 12.5 mg PO DAILY 08/01/18 Ibuprofen 600 mg PO TID PRN 08/01/18 Mometasone Furoate [Asmanex] 2 puffs PO BID 08/01/18 Omeprazole 20 mg PO BID 08/01/18 Tiotropium [place] [Spiriva] 1 puffs PO DAILY 08/01/18 carvediloL [Carvedilol] 6.25 mg PO BID 08/01/18 traZODone [Desyrel] 25 mg PO DAILY PRN 08/01/18 Cyanocobalamin (Vitamin B-12) [Vitamin B-12] 500 mcg PO DAILY 09/14/18 Folic Acid 1 mg PO DAILY 09/14/18 Albuterol Sulfate [Albuterol Sulfate Hfa] 2 puffs INH Q4H PRN 11/20/18 lamoTRIgine [LaMICtal] 50 mg PO DAILY 11/20/18 Pregabalin [Lyrica] 200 mg PO BID 12/23/19 Objective - Vital Signs/Intake & Output Reviewed Vital Signs: Yes Vital Signs: Vital Signs x48h Temp Pulse Resp BP 12/23/19 17:00 36.9 C 76 22 105/68 12/23/19 15:58 71 16 12/23/19 15:00 71 22 93/54 L 12/23/19 14:00 69 20 91/52 L 12/23/19 13:00 36.7 C 71 20 106/65 12/23/19 12:00 80 16 96/65 12/23/19 11:00 70 13 83/54 L 12/23/19 10:00 69 17 83/57 L Intake & Output: Intake & Output 12/20/19 12/21/19 12/22/19 12/23/19 23:59 23:59 23:59 23:59 Intake Total 1400 3467.667 Output Total 125 2024 Balance 1275 1442.667 - Objective General Appearance: positive: No acute distress, Alert, Other (Thin white male who is 5 foot 11 and weighs 80.9 kg. Not tremulous, enthusiastically watching the football on TV today. Controlling his remote quite well.) Eyes Bilateral: positive: PERRL, EOMI ENT: positive: No signs of dehydration Neck: positive: No JVD. negative: Stiff neck Respiratory: positive: Chest non-tender, No respiratory distress. negative: Wheezes, Rales, Rhonchi Cardiovascular: positive: Regular rate & rhythm. negative: Systolic murmur, Gallop/S4, Friction rub Abdomen: positive: Non-tender, No organomegaly, Nml bowel sounds, No distention Skin: positive: Warm, Dry Extremities: positive: Full ROM, No pedal edema Neurologic/Psychiatric: positive: Oriented x3, CN's nml (2-12), Motor nml - Lab Results Fish Bones: 12/23/19 04:32 12/23/19 16:38 Other Labs: Lab Results x24hrs 12/23/19 12/23/19 12/23/19 Range/Units 16:38 10:00 09:50 WBC (4.8-10.8) x10^3/uL RBC (4.70-6.10) 10^6/uL Hgb (14.0-18.0) g/dL Hct (42.0-52.0) % MCV (80.0-94.0) fL MCH (27.0-31.0) pg MCHC (32.0-36.0) g/dL RDW (12.0-15.0) % Plt Count (130-450) 10^3/uL MPV (7.4-11.4) fL Neut # (Auto) (1.5-6.6) 10^3/uL Lymph # (Auto) (1.5-3.5) 10^3/uL [place]ove # (Auto) (0.0-1.0) 10^3/uL Eos # (Auto) (0.0-0.7) 10^3/uL Baso # (Auto) (0.0-0.1) 10^3/uL Absolute Nucleated RBC x10^3/uL Nucleated RBC % /100WBC VBG pH (7.31-7.41) VBG pCO2 (41-51) mmHg VBG pO2 (25-47) mmHg VBG HCO3 (23-28) mmol/L VBG Total CO2 (24-29) mmol/L VBG O2 Saturation (60-80) % VBG Base Excess (-2 - +2) mmol/L Sodium 124 L 125 L (135-145) mmol/L Potassium 2.3 L* 2.4 L* (3.5-5.0) mmol/L Chloride 82 L 79 L* (101-111) mmol/L Carbon Dioxide 35 H 37 H (21-32) mmol/L Anion Gap 7.0 9.0 (6-13) BUN 12 12 (6-20) mg/dL Creatinine 1.0 1.0 (0.6-1.2) mg/dL Estimated GFR (MDRD) 76 L 76 L (>89) Glucose 122 H 134 H (70-100) mg/dL Uric Acid (2.6-7.2) mg/dL Calcium 8.2 L 8.3 L (8.5-10.3) mg/dL Phosphorus (2.5-4.6) mg/dL Magnesium (1.7-2.8) mg/dL Total Bilirubin (0.2-1.0) mg/dL AST (10-42) IU/L ALT (10-60) IU/L Alkaline Phosphatase (42-121) IU/L Total Creatine Kinase (22-269) IU/L Troponin I High Sens (2.3-19.7) ng/L Total Protein (6.7-8.2) g/dL Albumin (3.2-5.5) g/dL Globulin (2.1-4.2) g/dL Albumin/Globulin Ratio (1.0-2.2) Lipase (22-51) U/L TSH (0.34-5.60) uIU/mL Cortisol AM Sample ug/dL Urine Color Urine Clarity (CLEAR) Urine pH (5.0-7.5) PH Ur Specific [place] (1.002-1.030) Urine Protein (NEGATIVE) mg/dL Urine Glucose (UA) (NEGATIVE) mg/dL Urine Ketones (NEGATIVE) mg/dL Urine Occult Blood (NEGATIVE) Urine Nitrite (NEGATIVE) Urine Bilirubin (NEGATIVE) Urine Urobilinogen (NORMAL) E.U./dL Ur Leukocyte Esterase (NEGATIVE) Ur Microscopic Review Urine Culture Comments Ur Random Chloride mmol/L Urine Sodium mmol/L Nasal Screen MRSA (PCR) (NEGATIVE) Stl C. diff Tox B Gene NEGATIVE (NEGATIVE) Ethyl Alcohol mg/dL 12/23/19 12/23/19 12/23/19 Range/Units 07:52 04:32 04:32 WBC (4.8-10.8) x10^3/uL RBC (4.70-6.10) 10^6/uL Hgb (14.0-18.0) g/dL Hct (42.0-52.0) % MCV (80.0-94.0) fL MCH (27.0-31.0) pg MCHC (32.0-36.0) g/dL RDW (12.0-15.0) % Plt Count (130-450) 10^3/uL MPV (7.4-11.4) fL Neut # (Auto) (1.5-6.6) 10^3/uL Lymph # (Auto) (1.5-3.5) 10^3/uL [place]ove # (Auto) (0.0-1.0) 10^3/uL Eos # (Auto) (0.0-0.7) 10^3/uL Baso # (Auto) (0.0-0.1) 10^3/uL Absolute Nucleated RBC x10^3/uL Nucleated RBC % /100WBC VBG pH (7.31-7.41) VBG pCO2 (41-51) mmHg VBG pO2 (25-47) mmHg VBG HCO3 (23-28) mmol/L VBG Total CO2 (24-29) mmol/L VBG O2 Saturation (60-80) % VBG Base Excess (-2 - +2) mmol/L Sodium (135-145) mmol/L Potassium (3.5-5.0) mmol/L Chloride (101-111) mmol/L Carbon Dioxide (21-32) mmol/L Anion Gap (6-13) BUN (6-20) mg/dL Creatinine (0.6-1.2) mg/dL Estimated GFR (MDRD) (>89) Glucose (70-100) mg/dL Uric Acid 6.1 (2.6-7.2) mg/dL Calcium (8.5-10.3) mg/dL Phosphorus (2.5-4.6) mg/dL Magnesium (1.7-2.8) mg/dL Total Bilirubin (0.2-1.0) mg/dL AST (10-42) IU/L ALT (10-60) IU/L Alkaline Phosphatase (42-121) IU/L Total Creatine Kinase (22-269) IU/L Troponin I High Sens (2.3-19.7) ng/L Total Protein (6.7-8.2) g/dL Albumin (3.2-5.5) g/dL Globulin (2.1-4.2) g/dL Albumin/Globulin Ratio (1.0-2.2) Lipase (22-51) U/L TSH 0.88 (0.34-5.60) uIU/mL Cortisol AM Sample 13.6 ug/dL Urine Color Urine Clarity (CLEAR) Urine pH (5.0-7.5) PH Ur Specific [place] (1.002-1.030) Urine Protein (NEGATIVE) mg/dL Urine Glucose (UA) (NEGATIVE) mg/dL Urine Ketones (NEGATIVE) mg/dL Urine Occult Blood (NEGATIVE) Urine Nitrite (NEGATIVE) Urine Bilirubin (NEGATIVE) Urine Urobilinogen (NORMAL) E.U./dL Ur Leukocyte Esterase (NEGATIVE) Ur Microscopic Review Urine Culture Comments Ur Random Chloride mmol/L Urine Sodium mmol/L Nasal Screen MRSA (PCR) (NEGATIVE) Stl C. diff Tox B Gene (NEGATIVE) Ethyl Alcohol mg/dL 12/23/19 12/23/19 12/22/19 Range/Units 04:32 04:32 23:56 WBC 6.0 (4.8-10.8) x10^3/uL RBC 2.83 L (4.70-6.10) 10^6/uL Hgb 9.3 L (14.0-18.0) g/dL Hct 24.2 L (42.0-52.0) % MCV 85.5 (80.0-94.0) fL MCH 32.9 H (27.0-31.0) pg MCHC 38.4 H (32.0-36.0) g/dL RDW 12.5 (12.0-15.0) % Plt Count 139 (130-450) 10^3/uL MPV 10.9 (7.4-11.4) fL Neut # (Auto) 3.7 (1.5-6.6) 10^3/uL Lymph # (Auto) 1.3 L (1.5-3.5) 10^3/uL [place] # (Auto) 0.9 (0.0-1.0) 10^3/uL Eos # (Auto) 0.0 (0.0-0.7) 10^3/uL Baso # (Auto) 0.0 (0.0-0.1) 10^3/uL Absolute Nucleated RBC 0.00 x10^3/uL Nucleated RBC % 0.0 /100WBC VBG pH (7.31-7.41) VBG pCO2 (41-51) mmHg VBG pO2 (25-47) mmHg VBG HCO3 (23-28) mmol/L VBG Total CO2 (24-29) mmol/L VBG O2 Saturation (60-80) % VBG Base Excess (-2 - +2) mmol/L Sodium 117 L* (135-145) mmol/L Potassium 1.6 L* (3.5-5.0) mmol/L Chloride 71 L* (101-111) mmol/L Carbon Dioxide 38 H (21-32) mmol/L Anion Gap 8.0 (6-13) BUN 12 (6-20) mg/dL Creatinine 0.9 (0.6-1.2) mg/dL Estimated GFR (MDRD) 86 L (>89) Glucose 101 H (70-100) mg/dL Uric Acid (2.6-7.2) mg/dL Calcium 7.7 L (8.5-10.3) mg/dL Phosphorus 2.6 (2.5-4.6) mg/dL Magnesium 2.1 (1.7-2.8) mg/dL Total Bilirubin (0.2-1.0) mg/dL AST (10-42) IU/L ALT (10-60) IU/L Alkaline Phosphatase (42-121) IU/L Total Creatine Kinase 277 H (22-269) IU/L Troponin I High Sens (2.3-19.7) ng/L Total Protein (6.7-8.2) g/dL Albumin (3.2-5.5) g/dL Globulin (2.1-4.2) g/dL Albumin/Globulin Ratio (1.0-2.2) Lipase (22-51) U/L TSH (0.34-5.60) uIU/mL Cortisol AM Sample ug/dL Urine Color Urine Clarity (CLEAR) Urine pH (5.0-7.5) PH Ur Specific [place] (1.002-1.030) Urine Protein (NEGATIVE) mg/dL Urine Glucose (UA) (NEGATIVE) mg/dL Urine Ketones (NEGATIVE) mg/dL Urine Occult Blood (NEGATIVE) Urine Nitrite (NEGATIVE) Urine Bilirubin (NEGATIVE) Urine Urobilinogen (NORMAL) E.U./dL Ur Leukocyte Esterase (NEGATIVE) Ur Microscopic Review Urine Culture Comments Ur Random Chloride mmol/L Urine Sodium mmol/L Nasal Screen MRSA (PCR) (NEGATIVE) Stl C. diff Tox B Gene (NEGATIVE) Ethyl Alcohol mg/dL 12/22/19 12/22/19 12/22/19 Range/Units 23:56 23:56 22:45 WBC (4.8-10.8) x10^3/uL RBC (4.70-6.10) 10^6/uL Hgb (14.0-18.0) g/dL Hct (42.0-52.0) % MCV (80.0-94.0) fL MCH (27.0-31.0) pg MCHC (32.0-36.0) g/dL RDW (12.0-15.0) % Plt Count (130-450) 10^3/uL MPV (7.4-11.4) fL Neut # (Auto) (1.5-6.6) 10^3/uL Lymph # (Auto) (1.5-3.5) 10^3/uL [place] # (Auto) (0.0-1.0) 10^3/uL Eos # (Auto) (0.0-0.7) 10^3/uL Baso # (Auto) (0.0-0.1) 10^3/uL Absolute Nucleated RBC x10^3/uL Nucleated RBC % /100WBC VBG pH (7.31-7.41) VBG pCO2 (41-51) mmHg VBG pO2 (25-47) mmHg VBG HCO3 (23-28) mmol/L VBG Total CO2 (24-29) mmol/L VBG O2 Saturation (60-80) % VBG Base Excess (-2 - +2) mmol/L Sodium 118 L* (135-145) mmol/L Potassium 1.5 L* (3.5-5.0) mmol/L Chloride 67 L* (101-111) mmol/L Carbon Dioxide 34 H (21-32) mmol/L Anion Gap 17.0 H (6-13) BUN 13 (6-20) mg/dL Creatinine 0.9 (0.6-1.2) mg/dL Estimated GFR (MDRD) 86 L (>89) Glucose 126 H (70-100) mg/dL Uric Acid (2.6-7.2) mg/dL Calcium 8.1 L (8.5-10.3) mg/dL Phosphorus (2.5-4.6) mg/dL Magnesium (1.7-2.8) mg/dL Total Bilirubin (0.2-1.0) mg/dL AST (10-42) IU/L ALT (10-60) IU/L Alkaline Phosphatase (42-121) IU/L Total Creatine Kinase (22-269) IU/L Troponin I High Sens 22.6 H* (2.3-19.7) ng/L Total Protein (6.7-8.2) g/dL Albumin (3.2-5.5) g/dL Globulin (2.1-4.2) g/dL Albumin/Globulin Ratio (1.0-2.2) Lipase (22-51) U/L TSH (0.34-5.60) uIU/mL Cortisol AM Sample ug/dL Urine Color Urine Clarity (CLEAR) Urine pH (5.0-7.5) PH Ur Specific [place] (1.002-1.030) Urine Protein (NEGATIVE) mg/dL Urine Glucose (UA) (NEGATIVE) mg/dL Urine Ketones (NEGATIVE) mg/dL Urine Occult Blood (NEGATIVE) Urine Nitrite (NEGATIVE) Urine Bilirubin (NEGATIVE) Urine Urobilinogen (NORMAL) E.U./dL Ur Leukocyte Esterase (NEGATIVE) Ur Microscopic Review Urine Culture Comments Ur Random Chloride mmol/L Urine Sodium mmol/L Nasal Screen MRSA (PCR) NEGATIVE (NEGATIVE) Stl C. diff Tox B Gene (NEGATIVE) Ethyl Alcohol mg/dL 12/22/19 12/22/19 12/22/19 Range/Units 21:40 21:40 21:10 WBC (4.8-10.8) x10^3/uL RBC (4.70-6.10) 10^6/uL Hgb (14.0-18.0) g/dL Hct (42.0-52.0) % MCV (80.0-94.0) fL MCH (27.0-31.0) pg MCHC (32.0-36.0) g/dL RDW (12.0-15.0) % Plt Count (130-450) 10^3/uL MPV (7.4-11.4) fL Neut # (Auto) (1.5-6.6) 10^3/uL Lymph # (Auto) (1.5-3.5) 10^3/uL [place] # (Auto) (0.0-1.0) 10^3/uL Eos # (Auto) (0.0-0.7) 10^3/uL Baso # (Auto) (0.0-0.1) 10^3/uL Absolute Nucleated RBC x10^3/uL Nucleated RBC % /100WBC VBG pH 7.596 H (7.31-7.41) VBG pCO2 39.8 L (41-51) mmHg VBG pO2 40.4 (25-47) mmHg VBG HCO3 37.8 H (23-28) mmol/L VBG Total CO2 39.1 H (24-29) mmol/L VBG O2 Saturation 79.7 (60-80) % VBG Base Excess 14.9 H (-2 - +2) mmol/L Sodium (135-145) mmol/L Potassium (3.5-5.0) mmol/L Chloride (101-111) mmol/L Carbon Dioxide (21-32) mmol/L Anion Gap (6-13) BUN (6-20) mg/dL Creatinine (0.6-1.2) mg/dL Estimated GFR (MDRD) (>89) Glucose (70-100) mg/dL Uric Acid (2.6-7.2) mg/dL Calcium (8.5-10.3) mg/dL Phosphorus (2.5-4.6) mg/dL Magnesium (1.7-2.8) mg/dL Total Bilirubin (0.2-1.0) mg/dL AST (10-42) IU/L ALT (10-60) IU/L Alkaline Phosphatase (42-121) IU/L Total Creatine Kinase (22-269) IU/L Troponin I High Sens (2.3-19.7) ng/L Total Protein (6.7-8.2) g/dL Albumin (3.2-5.5) g/dL Globulin (2.1-4.2) g/dL Albumin/Globulin Ratio (1.0-2.2) Lipase (22-51) U/L TSH (0.34-5.60) uIU/mL Cortisol AM Sample ug/dL Urine Color ORANGE Urine Clarity CLEAR (CLEAR) Urine pH 6.5 (5.0-7.5) PH Ur Specific [place] 1.020 (1.002-1.030) Urine Protein TRACE (NEGATIVE) mg/dL Urine Glucose (UA) NEGATIVE (NEGATIVE) mg/dL Urine Ketones TRACE (NEGATIVE) mg/dL Urine Occult Blood TRACE-LYSE (NEGATIVE) Urine Nitrite NEGATIVE (NEGATIVE) Urine Bilirubin NEGATIVE (NEGATIVE) Urine Urobilinogen 2 H (NORMAL) E.U./dL Ur Leukocyte Esterase NEGATIVE (NEGATIVE) Ur Microscopic Review NOT INDICATED Urine Culture Comments NOT INDICATED Ur Random Chloride 96 mmol/L Urine Sodium 60.0 mmol/L Nasal Screen MRSA (PCR) (NEGATIVE) Stl C. diff Tox B Gene (NEGATIVE) Ethyl Alcohol mg/dL 12/22/19 12/22/19 12/22/19 Range/Units 21:10 20:11 20:11 WBC (4.8-10.8) x10^3/uL RBC (4.70-6.10) 10^6/uL Hgb (14.0-18.0) g/dL Hct (42.0-52.0) % MCV (80.0-94.0) fL MCH (27.0-31.0) pg MCHC (32.0-36.0) g/dL RDW (12.0-15.0) % Plt Count (130-450) 10^3/uL MPV (7.4-11.4) fL Neut # (Auto) (1.5-6.6) 10^3/uL Lymph # (Auto) (1.5-3.5) 10^3/uL [place] # (Auto) (0.0-1.0) 10^3/uL Eos # (Auto) (0.0-0.7) 10^3/uL Baso # (Auto) (0.0-0.1) 10^3/uL Absolute Nucleated RBC x10^3/uL Nucleated RBC % /100WBC VBG pH (7.31-7.41) VBG pCO2 (41-51) mmHg VBG pO2 (25-47) mmHg VBG HCO3 (23-28) mmol/L VBG Total CO2 (24-29) mmol/L VBG O2 Saturation (60-80) % VBG Base Excess (-2 - +2) mmol/L Sodium 116 L* 117 L* (135-145) mmol/L Potassium < 1.5 L* < 1.5 L* (3.5-5.0) mmol/L Chloride 66 L* 63 L* (101-111) mmol/L Carbon Dioxide 37 H 38 H (21-32) mmol/L Anion Gap 13.0 16.0 H (6-13) BUN 14 14 (6-20) mg/dL Creatinine 0.9 1.0 (0.6-1.2) mg/dL Estimated GFR (MDRD) 86 L 76 L (>89) Glucose 118 H 134 H (70-100) mg/dL Uric Acid (2.6-7.2) mg/dL Calcium 8.0 L 8.3 L (8.5-10.3) mg/dL Phosphorus 2.6 (2.5-4.6) mg/dL Magnesium 1.3 L (1.7-2.8) mg/dL Total Bilirubin 3.4 H (0.2-1.0) mg/dL AST 35 (10-42) IU/L ALT 28 (10-60) IU/L Alkaline Phosphatase 72 (42-121) IU/L Total Creatine Kinase (22-269) IU/L Troponin I High Sens 21.8 H* (2.3-19.7) ng/L Total Protein 6.2 L (6.7-8.2) g/dL Albumin 3.5 (3.2-5.5) g/dL Globulin 2.7 (2.1-4.2) g/dL Albumin/Globulin Ratio 1.3 (1.0-2.2) Lipase 46 (22-51) U/L TSH (0.34-5.60) uIU/mL Cortisol AM Sample ug/dL Urine Color Urine Clarity (CLEAR) Urine pH (5.0-7.5) PH Ur Specific [place] (1.002-1.030) Urine Protein (NEGATIVE) mg/dL Urine Glucose (UA) (NEGATIVE) mg/dL Urine Ketones (NEGATIVE) mg/dL Urine Occult Blood (NEGATIVE) Urine Nitrite (NEGATIVE) Urine Bilirubin (NEGATIVE) Urine Urobilinogen (NORMAL) E.U./dL Ur Leukocyte Esterase (NEGATIVE) Ur Microscopic Review Urine Culture Comments Ur Random Chloride mmol/L Urine Sodium mmol/L Nasal Screen MRSA (PCR) (NEGATIVE) Stl C. diff Tox B Gene (NEGATIVE) Ethyl Alcohol < 5.0 mg/dL 12/22/19 Range/Units 20:11 WBC 9.2 (4.8-10.8) x10^3/uL RBC 3.50 L (4.70-6.10) 10^6/uL Hgb 11.5 L (14.0-18.0) g/dL Hct 29.3 L (42.0-52.0) % MCV 83.7 (80.0-94.0) fL MCH 32.9 H (27.0-31.0) pg MCHC 39.2 H (32.0-36.0) g/dL RDW 12.4 (12.0-15.0) % Plt Count 180 (130-450) 10^3/uL MPV 10.7 (7.4-11.4) fL Neut # (Auto) 6.9 H (1.5-6.6) 10^3/uL Lymph # (Auto) 1.1 L (1.5-3.5) 10^3/uL [place] # (Auto) 1.0 (0.0-1.0) 10^3/uL Eos # (Auto) 0.1 (0.0-0.7) 10^3/uL Baso # (Auto) 0.0 (0.0-0.1) 10^3/uL Absolute Nucleated RBC 0.00 x10^3/uL Nucleated RBC % 0.0 /100WBC VBG pH (7.31-7.41) VBG pCO2 (41-51) mmHg VBG pO2 (25-47) mmHg VBG HCO3 (23-28) mmol/L VBG Total CO2 (24-29) mmol/L VBG O2 Saturation (60-80) % VBG Base Excess (-2 - +2) mmol/L Sodium (135-145) mmol/L Potassium (3.5-5.0) mmol/L Chloride (101-111) mmol/L Carbon Dioxide (21-32) mmol/L Anion Gap (6-13) BUN (6-20) mg/dL Creatinine (0.6-1.2) mg/dL Estimated GFR (MDRD) (>89) Glucose (70-100) mg/dL Uric Acid (2.6-7.2) mg/dL Calcium (8.5-10.3) mg/dL Phosphorus (2.5-4.6) mg/dL Magnesium (1.7-2.8) mg/dL Total Bilirubin (0.2-1.0) mg/dL AST (10-42) IU/L ALT (10-60) IU/L Alkaline Phosphatase (42-121) IU/L Total Creatine Kinase (22-269) IU/L Troponin I High Sens (2.3-19.7) ng/L Total Protein (6.7-8.2) g/dL Albumin (3.2-5.5) g/dL Globulin (2.1-4.2) g/dL Albumin/Globulin Ratio (1.0-2.2) Lipase (22-51) U/L TSH (0.34-5.60) uIU/mL Cortisol AM Sample ug/dL Urine Color Urine Clarity (CLEAR) Urine pH (5.0-7.5) PH Ur Specific [place] (1.002-1.030) Urine Protein (NEGATIVE) mg/dL Urine Glucose (UA) (NEGATIVE) mg/dL Urine Ketones (NEGATIVE) mg/dL Urine Occult Blood (NEGATIVE) Urine Nitrite (NEGATIVE) Urine Bilirubin (NEGATIVE) Urine Urobilinogen (NORMAL) E.U./dL Ur Leukocyte Esterase (NEGATIVE) Ur Microscopic Review Urine Culture Comments Ur Random Chloride mmol/L Urine Sodium mmol/L Nasal Screen MRSA (PCR) (NEGATIVE) Stl C. diff Tox B Gene (NEGATIVE) Ethyl Alcohol mg/dL ABX Reporting Has patient been on IV antibiotics over the past 48 hours?: No Assessment/Plan - Problem List (1) Hyponatremia Impression: 12/21: Suspect this is likely hypovolemic hyponatremia secondary to the use of thiazide as well as nausea and vomiting. He does appear slightly hypovolemic on exam. His sodium is 116 on admission. This is likely contributing to his overall weakness as well as the hypokalemia. He received a liter of normal saline in the emergency department. We will continue him on maintenance IV fluids with normal saline at 100 cc an hour. We will recheck a BMP in 4 hours and once again in the morning. The goal correction will be approximately 6 to 8 mmol/L over next 24 hours. We will continue to hold his home hydrochlorothiazide. We will put him on a free water restriction if his soidum is not improved with IV hydration as this could possibly end up being euvolemic hyponatremia from beer portal robinson/SIADH. Will follow up the urine sodium. Urine osmolality has been ordered but unfortunately this is a send out lab and will not be available for a few days. We will check TSH and a.m. cortisol. December 22: His TSH is 0.88. Cortisol is 13.6. He has been responding to IV hydration. Sodium is gone from 1 17-1 25-1 24 by this afternoon. We continue to think this is from hypovolemic hyponatremia. Plan: Continue to hold his hydrochlorothiazide. I told him I do not think were going to resume that in the outpatient setting. Right now he has had 1000 cc total liquid restriction. We will increase that to 1500 cc tomorrow. (2) Hypokalemia Conclusion/Plan: This is likely multifactorial and due to poor oral intake, the use of a thiazide diuretic, and his significant metabolic alkalosis. His potassium is less than 1.5. This is likely the cause of his overall generalized weakness as well as his EKG changes. His magnesium is also decreased at 1.3. At this time, we will replace his magnesium orally and intravenously. We will replace his potassium aggressively orally and intravenously and fortunately a central line was placed by the ER provider. We will recheck a BMP this evening. We will monitor on telemetry. Hold his hydrochlorothiazide. Will consider checking aldosterone and renin activity if there is no improvement. December 22: With aggressive riders, potassium went from less than 1.5-1.6. He has been given more riders and is 2.4. Plan: Initiate ICU protocol. This is for electrolyte replacement. His diarrhea is slowing down and is down to 2 bowel movements today. (3) Metabolic alkalosis Conclusion/Plan: Suspect this is likely secondary to his nausea and vomiting as well as the hypokalemia and the use a thiazide diuretic. His bicarbonate is elevated at nearly 40 and his pH is nearly 7.6 on venous blood gas. Urine chloride has been ordered and is pending. We will start him on gentle hydration with IV saline. We will also start him on Protonix IV. We will continue to monitor his BMP. December 22: Carbon dioxide was 38 then 37 then 35. He is going in the right direction. Contraction alkalosis appears to be slowly improving with our treatment. (4) Diarrhea with Nausea and vomiting Conclusion/Plan: Suspect this may be secondary to alcoholic gastritis. He reports poor oral intake over the past few weeks with persistent nausea and vomiting. He is not on NSAIDs at home but has been consuming alcohol. He does have oral candidiasis but a low suspicion for esophageal candidiasis at this time. We will place him on Protonix IV. Diet as tolerated. We will hold off on Zofran and other antiemetics given his significantly prolonged QTC. We will initiate these once his QTC improves after his potassium is replaced. If he has persistent nausea and vomiting then will consult general surgery for endoscopy. December 22: He has had no further nausea and vomiting. He is also eating and keeping his food down. The diarrhea that was multiple bowel movements a day has also slowed down needs only had 2 here. He is C. difficile negative. Plan: Continue with current plan and use Imodium or Lomotil as needed (5) Hypomagnesemia Conclusion/Plan: His magnesium is decreased at 1.3. We will replace this intravenously and orally prior to potassium supplementation as this will need to be corrected before his potassium can be corrected. We will continue to monitor on a daily basis. 12/22: Supplemented and is 2.1 today. On ICU replacement protocol. (6) Abnormal EKG Conclusion/Plan: EKG reveals a sinus rhythm with a prolonged AR interval as well as frequent PVCs and a prolonged QTC of 661. His QRS is also prolonged at 127. There also appears to be ST depressions in the inferior leads and U waves present as well. This is likely due to his significant hypokalemia. His initial troponin is mildly elevated. At this time, we will replace his potassium aggressively. We will monitor him on telemetry. Trend his troponins. December 22: Telemetry had a few beats of nonsustained V. tach. Those resolved on their own. Troponin was 21.2 on admission. Repeat troponin was 22.6. No further trending down. (7) Alcohol abuse Conclusion/Plan: Alcohol level is less than 5 on admission. His last drink was reportedly this morning. We will start him on oral thiamine and multivitamin. We will monitor for signs of withdrawal. Social work consult to assist with alcohol cessation. December 22: No signs and symptoms of withdrawal at this time. Continue him on oral thiamine and multivitamin. Social work is already seeing him (8) Oral candidiasis Conclusion/Plan: This is likely due to his inhaled corticosteroid. We will start him on oral nystatin. We will hold off on fluconazole given his prolonged QTC. If his nausea and vomiting persists then we will need to consider an endoscopy to rule out esophageal candidiasis. December 22. Since his nausea and vomiting have resolved, no EGD at this time. (9) Hx of essential hypertension Conclusion/Plan: He was initially hypertensive but is now normotensive with a blood pressure of 108/68. We will hold his home hydrochlorothiazide given the hyponatremia. We w ill continue his home carvedilol. Will consider adding amlodipine if a second antihypertensive is warranted. December 22: With the carvedilol his pulse is been in the 70s. Blood pressure has been "soft" since yesterday. He will be 91-106 systolic. But maintaining urine output. Not dizzy. Not short of breath. We will continue to hold his hydrochlorothiazide. In fact I may not resume it at discharge. (10) History of COPD Conclusion/Plan: Stable and not in exacerbation. Will continue his home inhalers. (11) Depression Conclusion/Plan: Stable. We will hold his home fluoxetine at this time until we have urine sodium and urine osmolality back to ensure this is not potentially SIADH. (12) Bipolar disorder Conclusion/Plan: Stable. We will continue his home Lamictal.
[2019-12-23] MEDS ORDERED: DIPHENOX/ATROPINE 2.5/0.025 MG TABLET PO PRN (17:34)
[2019-12-23] MEDS: SODIUM CHLORIDE FLUSH 0.9% 10 ML SYRINGE IVP PRN ×2 (19:55→21:24)
[2019-12-23 20:12] LABS: MAGNESIUM 2.2 mg/dL (1.7-2.8)
[2019-12-23] MEDS ORDERED: POTASSIUM PHOSPHATE 21 MMOL in SODIUM CHLORIDE 0.9% 250 ML IV ONE (20:23)
[2019-12-23] MEDS: POTASSIUM CHLOR 20 MEQ/100 ML 20 MEQ/100 ML BAG IV SCH ×3 (21:00→23:04)
[2019-12-24] MEDS: POTASSIUM CHLOR 20 MEQ/100 ML 20 MEQ/100 ML BAG IV SCH (00:16)
[2019-12-24] MEDS: SODIUM CHLORIDE FLUSH 0.9% 10 ML SYRINGE IVP SCH ×3 (00:21→17:23)
[2019-12-24] MEDS: ACETAMINOPHEN 325 MG TABLET PO PRN (00:26)
[2019-12-24] MEDS: SODIUM CHLORIDE FLUSH 0.9% 10 ML SYRINGE IVP PRN ×2 (01:27→04:51)
[2019-12-24 05:10] LABS: BASOPHILS % (AUTO) 0.8 %; EOSINOPHILS # (AUTO) 0.1 10^3/uL (0.0-0.7); LYMPHOCYTES # (AUTO) 1.6 10^3/uL (1.5-3.5); LYMPHOCYTES % (AUTO) 33.2 %; MEAN CORPUSCULAR HEMOGLOBIN 33.6 pg (27.0-31.0); MEAN CORPUSCULAR HGB CONC 36.9 g/dL (32.0-36.0); MEAN PLATELET VOLUME 9.8 fL (7.4-11.4); MONOCYTES # (AUTO) 0.5 10^3/uL (0.0-1.0); MONOCYTES % (AUTO) 10.9 %; NEUTROPHILS # (AUTO) 2.6 10^3/uL (1.5-6.6); NEUTROPHILS % (AUTO) 53.1 %; PLT - PLATELET COUNT 149 10^3/uL (130-450); RED BLOOD COUNT 2.68 10^6/uL (4.70-6.10); WHITE BLOOD COUNT 4.9 x10^3/uL (4.8-10.8)
[2019-12-24 05:20] LABS: CALCIUM 8.1 mg/dL (8.5-10.3); CREATININE 0.9 mg/dL (0.6-1.2); MAGNESIUM 2.2 mg/dL (1.7-2.8); PHOSPHORUS 1.8 mg/dL (2.5-4.6)
[2019-12-24] MEDS: PANTOPRAZOLE 40 MG VIAL IVP SCH (06:39)
[2019-12-24] MEDS: NS W/20 MEQ KCL 1,000 ML IV SCH (06:41)
[2019-12-24] MEDS: GABAPENTIN 300 MG CAPSULE PO SCH ×3 (06:42→20:58)
[2019-12-24] MEDS: NEUTRA-PHOS 250 MG TABLET PO SCH ×2 (06:45→08:36)
--- NOTE | 2019-12-24 07:40 | PROVIDER PROGRESS NOTE ---
Subjective - Prog Note Date Prog Note Date: 12/24/19 Prog Note Time: 07:40 - Subjective Pt reports feeling: Improved Subjective: 2 diarrhea movements yesterday. None since then. C. difficile negative. He has been eating 100% of his meals. He would love to drink more coffee. Right now have him on 1000 cc fluid restriction. No fever, no chest pain. Doing well. Current Medications - Current Medications Current Medications: Active Medications Acetaminophen (Tylenol) 650 mg PO Q4HR PRN PRN Reason: Pain 1 to 4 Last Admin: 12/24/19 00:26 Dose: 650 mg Documented by: Albuterol/Ipratropium (Duoneb) 3 ml INH Q4HR PRN PRN Reason: Wheezing Carvedilol (Coreg) 6.25 mg PO BID [facility] Last Admin: 12/23/19 20:58 Dose: 6.25 mg Documented by: Diphenoxylate HCl/Atropine (Lomotil) 1 tab PO QID PRN PRN Reason: Diarrhea Enoxaparin Sodium (Lovenox) 40 mg SUBQ DAILY [facility] Last Admin: 12/23/19 08:38 Dose: 40 mg Documented by: Folic Acid () 1 mg PO DAILY [facility] Last Admin: 12/23/19 08:42 Dose: 1 mg Documented by: Gabapentin (Neurontin) 600 mg PO TID [facility] Last Admin: 12/24/19 06:42 Dose: 600 mg Documented by: Potassium Chloride/Sodium Chloride (Normal Saline 0.9% W/20 Meq Kcl) 1,000 mls @ 100 mls/hr IV .Q10H [facility] Last Admin: 12/24/19 06:41 Dose: 100 mls/hr Documented by: Lamotrigine (Lamictal) 50 mg PO DAILY [facility] Last Admin: 12/23/19 08:37 Dose: 50 mg Documented by: Multivitamins (Theragran) 1 tab PO DAILYWM [facility] Last Admin: 12/23/19 08:42 Dose: 1 tab Documented by: Nystatin (Mycostatin) 5 ml PO QID [facility] Last Admin: 12/23/19 21:08 Dose: 5 ml Documented by: Pantoprazole Sodium (Protonix) 40 mg IVP QDAC [facility] Last Admin: 12/24/19 06:39 Dose: 40 mg Documented by: Sodium Chloride (Normal Saline Flush 0.9%) 10 ml IVP 0100,0900,1700 [facility] Last Admin: 12/24/19 00:21 Dose: 10 ml Documented by: Sodium Chloride (Normal Saline Flush 0.9%) 10 ml IVP PRN PRN PRN Reason: NEEDED PER PROVIDER ORDERS Last Admin: 12/24/19 04:51 Dose: 30 ml Documented by: Sodium Phosphate (K-Phos Neutral) 250 mg PO Q2H [facility]; Protocol Stop: 12/24/19 09:01 Last Admin: 12/24/19 06:45 Dose: 250 mg Documented by: Thiamine HCl (Vitamin B-1) 100 mg PO DAILY [facility] Last Admin: 12/23/19 08:38 Dose: 100 mg Documented by: Fluoxetine HCl 20 mg PO DAILY 08/01/18 Hydrochlorothiazide 12.5 mg PO DAILY 08/01/18 Ibuprofen 600 mg PO TID PRN 08/01/18 Mometasone Furoate [Asmanex] 2 puffs PO BID 08/01/18 Omeprazole 20 mg PO BID 08/01/18 Tiotropium [place] [Spiriva] 1 puffs PO DAILY 08/01/18 carvediloL [Carvedilol] 6.25 mg PO BID 08/01/18 traZODone [Desyrel] 25 mg PO DAILY PRN 08/01/18 Cyanocobalamin (Vitamin B-12) [Vitamin B-12] 500 mcg PO DAILY 09/14/18 Folic Acid 1 mg PO DAILY 09/14/18 Albuterol Sulfate [Albuterol Sulfate Hfa] 2 puffs INH Q4H PRN 11/20/18 lamoTRIgine [LaMICtal] 50 mg PO DAILY 11/20/18 Pregabalin [Lyrica] 200 mg PO BID 12/23/19 Objective - Vital Signs/Intake & Output Reviewed Vital Signs: Yes Vital Signs: Vital Signs x48h Temp Pulse Resp BP Pulse Ox 12/24/19 07:00 73 20 109/70 12/24/19 06:00 64 16 94/66 96 12/24/19 05:00 65 15 92/68 94 12/24/19 04:00 36.4 C L 69 14 105/78 94 12/24/19 03:00 74 14 102/63 12/24/19 02:00 73 18 97/68 12/24/19 01:00 75 22 102/65 12/24/19 00:00 36.7 C 77 19 96/68 97 Intake & Output: Intake & Output 12/21/19 12/22/19 12/23/19 12/24/19 23:59 23:59 23:59 23:59 Intake Total 1400 4512.667 1600.333 Output Total 125 3475 800 Balance 1275 1037.667 800.333 - Objective General Appearance: positive: No acute distress, Alert Eyes Bilateral: positive: PERRL, EOMI ENT: positive: No signs of dehydration Neck: positive: No JVD Respiratory: positive: Chest non-tender. negative: Wheezes, Rales, Rhonchi Cardiovascular: positive: Regular rate & rhythm. negative: Gallop/S4, Friction rub Abdomen: positive: Non-tender, No organomegaly, Nml bowel sounds, No distention Skin: positive: Warm, Dry Extremities: positive: Full ROM, No pedal edema Neurologic/Psychiatric: positive: Oriented x3, CN's nml (2-12), Motor nml, Sensation nml - Lab Results Fish Bones: 12/24/19 04:44 12/24/19 04:44 Other Labs: Lab Results x24hrs 12/24/19 12/24/19 12/24/19 Range/Units 04:44 04:44 04:44 WBC 4.9 (4.8-10.8) x10^3/uL RBC 2.68 L (4.70-6.10) 10^6/uL Hgb 9.0 L (14.0-18.0) g/dL Hct 24.4 L (42.0-52.0) % MCV 91.0 (80.0-94.0) fL MCH 33.6 H (27.0-31.0) pg MCHC 36.9 H (32.0-36.0) g/dL RDW 13.0 (12.0-15.0) % Plt Count 149 (130-450) 10^3/uL MPV 9.8 (7.4-11.4) fL Neut # (Auto) 2.6 (1.5-6.6) 10^3/uL Lymph # (Auto) 1.6 (1.5-3.5) 10^3/uL [place] # (Auto) 0.5 (0.0-1.0) 10^3/uL Eos # (Auto) 0.1 (0.0-0.7) 10^3/uL Baso # (Auto) 0.0 (0.0-0.1) 10^3/uL Absolute Nucleated RBC 0.00 x10^3/uL Nucleated RBC % 0.0 /100WBC Sodium 134 L (135-145) mmol/L Potassium 3.6 (3.5-5.0) mmol/L Chloride 97 L (101-111) mmol/L Carbon Dioxide 32 (21-32) mmol/L Anion Gap 5.0 L (6-13) BUN 11 (6-20) mg/dL Creatinine 0.9 (0.6-1.2) mg/dL Estimated GFR (MDRD) 86 L (>89) Glucose 93 (70-100) mg/dL Calcium 8.1 L (8.5-10.3) mg/dL Phosphorus 1.8 L (2.5-4.6) mg/dL Magnesium 2.2 (1.7-2.8) mg/dL Albumin 2.8 L (3.2-5.5) g/dL Cortisol AM Sample ug/dL Stl C. diff Tox B Gene (NEGATIVE) 12/23/19 12/23/19 12/23/19 Range/Units 19:51 16:38 10:00 WBC (4.8-10.8) x10^3/uL RBC (4.70-6.10) 10^6/uL Hgb (14.0-18.0) g/dL Hct (42.0-52.0) % MCV (80.0-94.0) fL MCH (27.0-31.0) pg MCHC (32.0-36.0) g/dL RDW (12.0-15.0) % Plt Count (130-450) 10^3/uL MPV (7.4-11.4) fL Neut # (Auto) (1.5-6.6) 10^3/uL Lymph # (Auto) (1.5-3.5) 10^3/uL [place] # (Auto) (0.0-1.0) 10^3/uL Eos # (Auto) (0.0-0.7) 10^3/uL Baso # (Auto) (0.0-0.1) 10^3/uL Absolute Nucleated RBC x10^3/uL Nucleated RBC % /100WBC Sodium 124 L (135-145) mmol/L Potassium 2.8 L 2.3 L* (3.5-5.0) mmol/L Chloride 82 L (101-111) mmol/L Carbon Dioxide 35 H (21-32) mmol/L Anion Gap 7.0 (6-13) BUN 12 (6-20) mg/dL Creatinine 1.0 (0.6-1.2) mg/dL Estimated GFR (MDRD) 76 L (>89) Glucose 122 H (70-100) mg/dL Calcium 8.2 L (8.5-10.3) mg/dL Phosphorus 1.0 L* (2.5-4.6) mg/dL Magnesium 2.2 (1.7-2.8) mg/dL Albumin (3.2-5.5) g/dL Cortisol AM Sample ug/dL Stl C. diff Tox B Gene NEGATIVE (NEGATIVE) 12/23/19 12/23/19 Range/Units 09:50 07:52 WBC (4.8-10.8) x10^3/uL RBC (4.70-6.10) 10^6/uL Hgb (14.0-18.0) g/dL Hct (42.0-52.0) % MCV (80.0-94.0) fL MCH (27.0-31.0) pg MCHC (32.0-36.0) g/dL RDW (12.0-15.0) % Plt Count (130-450) 10^3/uL MPV (7.4-11.4) fL Neut # (Auto) (1.5-6.6) 10^3/uL Lymph # (Auto) (1.5-3.5) 10^3/uL [place] # (Auto) (0.0-1.0) 10^3/uL Eos # (Auto) (0.0-0.7) 10^3/uL Baso # (Auto) (0.0-0.1) 10^3/uL Absolute Nucleated RBC x10^3/uL Nucleated RBC % /100WBC Sodium 125 L (135-145) mmol/L Potassium 2.4 L* (3.5-5.0) mmol/L Chloride 79 L* (101-111) mmol/L Carbon Dioxide 37 H (21-32) mmol/L Anion Gap 9.0 (6-13) BUN 12 (6-20) mg/dL Creatinine 1.0 (0.6-1.2) mg/dL Estimated GFR (MDRD) 76 L (>89) Glucose 134 H (70-100) mg/dL Calcium 8.3 L (8.5-10.3) mg/dL Phosphorus (2.5-4.6) mg/dL Magnesium (1.7-2.8) mg/dL Albumin (3.2-5.5) g/dL Cortisol AM Sample 13.6 ug/dL Stl C. diff Tox B Gene (NEGATIVE) ABX Reporting Has patient been on IV antibiotics over the past 48 hours?: No Assessment/Plan - Problem List (1) Hyponatremia Impression: 12/21: Suspect this is likely hypovolemic hyponatremia secondary to the use of thiazide as well as nausea and vomiting. He does appear slightly hypovolemic on exam. His sodium is 116 on admission. This is likely contributing to his overall weakness as well as the hypokalemia. He received a liter of normal saline in the emergency department. We will continue him on maintenance IV fluids with normal saline at 100 cc an hour. We will recheck a BMP in 4 hours and once again in the morning. The goal correction will be approximately 6 to 8 mmol/L over next 24 hours. We will continue to hold his home hydrochlorothiazide. We will put him on a free water restriction if his soidum is not improved with IV hydration as this could possibly end up being euvolemic hyponatremia from beer portal robinson/SIADH. Will follow up the urine sodium. Urine osmolality has been ordered but unfortunately this is a send out lab and will not be available for a few days. We will check TSH and a.m. cortisol. December 22: His TSH is 0.88. Cortisol is 13.6. He has been responding to IV hydration. Sodium is gone from 1 17-1 25-1 24 by this afternoon. We continue to think this is from hypovolemic hyponatremia. Plan: Continue to hold his hydrochlorothiazide. I told him I do not think were going to resume that in the outpatient setting. Right now he has had 1000 cc total liquid restriction. We will increase that to 1500 cc tomorrow. December 23: Doing very well. Sodium is back up to 134. Plan: Transfer to [facility] status Increase fluid restriction to 1500 cc (2) Hypokalemia Conclusion/Plan: This is likely multifactorial and due to poor oral intake, the use of a thiazide diuretic, and his significant metabolic alkalosis. His potassium is less than 1.5. This is likely the cause of his overall generalized weakness as well as his EKG changes. His magnesium is also decreased at 1.3. At this time, we will replace his magnesium orally and intravenously. We will replace his potassium aggressively orally and intravenously and fortunately a central line was placed by the ER provider. We will recheck a BMP this evening. We will monitor on telemetry. Hold his hydrochlorothiazide. Will consider checking aldosterone and renin activity if there is no improvement. December 22: With aggressive riders, potassium went from less than 1.5-1.6. He has been given more riders and is 2.4. Plan: Initiate ICU protocol. This is for electrolyte replacement. His diarrhea is slowing down and is down to 2 bowel movements today. December 23: He has steadily increased the potassium from his undetectable less than 1.5 level. Today he is finally normal at 3.6. Plan: ICU electrolyte protocol will drop off his order sets since he is being transferred to [facility]. We will continue to monitor closely on a daily basis. If his potassium and sodium are normal tomorrow he may be able to go home. (3) Metabolic alkalosis Conclusion/Plan: Suspect this is likely secondary to his nausea and vomiting as well as the hypokalemia and the use a thiazide diuretic. His bicarbonate is elevated at nearly 40 and his pH is nearly 7.6 on venous blood gas. Urine chloride has been ordered and is pending. We will start him on gentle hydration with IV saline. We will also start him on Protonix IV. We will continue to monitor his BMP. December 22: Carbon dioxide was 38 then 37 then 35. He is going in the right direction. Contraction alkalosis appears to be slowly improving with our treatment. December 23: Resolved today. Dehydration, diarrhea have resolved. Plan: (4) Diarrhea with Nausea and vomiting Conclusion/Plan: Suspect this may be secondary to alcoholic gastritis. He reports poor oral intake over the past few weeks with persistent nausea and vomiting. He is not on NSAIDs at home but has been consuming alcohol. He does have oral candidiasis but a low suspicion for esophageal candidiasis at this time. We will place him on Protonix IV. Diet as tolerated. We will hold off on Zofran and other antiemetics given his significantly prolonged QTC. We will initiate these once his QTC improves after his potassium is replaced. If he has persistent nausea and vomiting then will consult general surgery for endoscopy. December 22: He has had no further nausea and vomiting. He is also eating and keeping his food down. The diarrhea that was multiple bowel movements a day has also slowed down needs only had 2 here. He is C. difficile negative. Plan: Continue with current plan and use Imodium or Lomotil as needed December 23: No diarrhea since December 22. That was earlier in the day. Has not needed to use his Lomotil. Suspect alcoholic gastritis was the main culprit since all of this is gone away once he stopped drinking and we started hydrating him. Plan: He is on Protonix here. We will switch that to p.o. Recommend that he do Protonix for a total of 1 month at home and then he could stop it. (5) Hypomagnesemia Conclusion/Plan: His magnesium is decreased at 1.3. We will replace this intravenously and orally prior to potassium supplementation as this will need to be corrected before his potassium can be corrected. We will continue to monitor on a daily basis. 12/22: Supplemented and is 2.1 today. On ICU replacement protocol. 12/23: Normal today. Phosphorus low. We will supplement that. (6) Abnormal EKG Conclusion/Plan: EKG reveals a sinus rhythm with a prolonged KS interval as well as frequent PVCs and a prolonged QTC of 661. His QRS is also prolonged at 127. There also appears to be ST depressions in the inferior leads and U waves present as well. This is likely due to his significant hypokalemia. His initial troponin is mildly elevated. At this time, we will replace his potassium aggressively. We will monitor him on telemetry. Trend his troponins. December 22: Telemetry had a few beats of nonsustained V. tach. Those resolved on their own. Troponin was 21.2 on admission. Repeat troponin was 22.6. No further trending down. December 23: No further arrhythmias. Repeat EKG to confirm improvement in QT interval (7) Alcohol abuse Conclusion/Plan: Alcohol level is less than 5 on admission. His last drink was reportedly this morning. We will start him on oral thiamine and multivitamin. We will monitor for signs of withdrawal. Social work consult to assist with alcohol cessation. December 22: No signs and symptoms of withdrawal at this time. Continue him on oral thiamine and multivitamin. Social work is already seeing him (8) Oral candidiasis Conclusion/Plan: This is likely due to his inhaled corticosteroid. We will start him on oral nystatin. We will hold off on fluconazole given his prolonged QTC. If his nausea and vomiting persists then we will need to consider an endoscopy to rule out esophageal candidiasis. December 22. Since his nausea and vomiting have resolved, no EGD at this time. (9) Hx of essential hypertension Conclusion/Plan: He was initially hypertensive but is now normotensive with a blood pressure of 108/68. We will hold his home hydrochlorothiazide given the hyponatremia. We will continue his home carvedilol. Will consider adding amlodipine if a second antihypertensive is warranted. December 22: With the carvedilol his pulse is been in the 70s. Blood pressure has been "soft" since yesterday. He will be 91-106 systolic. But maintaining urine output. Not dizzy. Not short of breath. We will continue to hold his hydrochlorothiazide. In fact I may not resume it at discharge. December 23: Blood pressure still on the low side. 92 systolic-105 systolic so far today. When he is discharged tomorrow, no resumption of blood pressure medications.He will need to see his primary care provider in follow-up. Get his blood pressure checked every month In the PCP office. Or The patient can take it at home. Once he starts getting in the 140s range resume his medication. (10) History of COPD Conclusion/Plan: Stable and not in exacerbation. Will continue his home inhalers. (11) Depression Conclusion/Plan: Stable. We will hold his home fluoxetine at this time until we have urine sodium and urine osmolality back to ensure this is not potentially SIADH. (12) Bipolar disorder Conclusion/Plan: Stable. We will continue his home Lamictal.
[2019-12-24] MEDS: lamoTRIgine 100 MG TABLET PO SCH (08:31)
[2019-12-24] MEDS: THIAMINE 100 MG TABLET PO SCH (08:31)
[2019-12-24] MEDS: MULTIVITAMIN TABLET PO SCH (08:31)
[2019-12-24] MEDS: carvediloL 3.125 MG TABLET PO SCH ×2 (08:32→20:58)
[2019-12-24] MEDS: ENOXAPARIN 40 MG/0.4 ML SYRINGE SUBQ SCH (08:33)
[2019-12-24] MEDS: FOLIC ACID 1 MG TABLET PO SCH (08:33)
[2019-12-24] MEDS: NYSTATIN 500000 UNITS/5 ML UDC PO SCH ×4 (08:36→20:58)
[2019-12-24] MEDS: SACCHAROMYCES BOULARDII 250 MG CAPSULE PO SCH (17:23)
[2019-12-25] MEDS: SODIUM CHLORIDE FLUSH 0.9% 10 ML SYRINGE IVP SCH ×4 (04:44→23:49)
[2019-12-25 05:11] LABS: BASOPHILS # (AUTO) 0.1 10^3/uL (0.0-0.1); BASOPHILS % (AUTO) 0.9 %; EOSINOPHILS # (AUTO) 0.1 10^3/uL (0.0-0.7); EOSINOPHILS % (AUTO) 1.7 %; HGB - HEMOGLOBIN 8.6 g/dL (14.0-18.0); LYMPHOCYTES # (AUTO) 2.4 10^3/uL (1.5-3.5); LYMPHOCYTES % (AUTO) 27.8 %; MEAN CORPUSCULAR HEMOGLOBIN 32.2 pg (27.0-31.0); MEAN CORPUSCULAR HGB CONC 34.4 g/dL (32.0-36.0); MEAN CORPUSCULAR VOLUME 93.6 fL (80.0-94.0); MEAN PLATELET VOLUME 9.7 fL (7.4-11.4); MONOCYTES # (AUTO) 0.8 10^3/uL (0.0-1.0); MONOCYTES % (AUTO) 8.9 %; NEUTROPHILS # (AUTO) 4.8 10^3/uL (1.5-6.6); PLT - PLATELET COUNT 177 10^3/uL (130-450); RED BLOOD COUNT 2.67 10^6/uL (4.70-6.10); RED CELL DISTRIBUTION WIDTH 13.2 % (12.0-15.0); WHITE BLOOD COUNT 8.5 x10^3/uL (4.8-10.8)
[2019-12-25 05:23] LABS: CALCIUM 8.5 mg/dL (8.5-10.3); CREATININE 0.9 mg/dL (0.6-1.2); MAGNESIUM 1.7 mg/dL (1.7-2.8); PHOSPHORUS 2.4 mg/dL (2.5-4.6)
[2019-12-25] MEDS: PANTOPRAZOLE 40 MG TABLET PO SCH (06:03)
[2019-12-25] MEDS: GABAPENTIN 300 MG CAPSULE PO SCH ×3 (06:04→21:19)
[2019-12-25] MEDS ORDERED: MAGNESIUM SULFATE 2 GRAM 2 GM/50 ML BAG IV ONE (08:00)
[2019-12-25] MEDS ORDERED: POTASSIUM CHLORIDE 20 MEQ TABLET PO ONE (08:00)
[2019-12-25] MEDS: MULTIVITAMIN TABLET PO SCH (08:33)
[2019-12-25] MEDS: lamoTRIgine 100 MG TABLET PO SCH (08:33)
[2019-12-25] MEDS: THIAMINE 100 MG TABLET PO SCH (08:35)
[2019-12-25] MEDS: FOLIC ACID 1 MG TABLET PO SCH (08:35)
[2019-12-25] MEDS: carvediloL 3.125 MG TABLET PO SCH ×2 (08:36→21:19)
[2019-12-25] MEDS: NEUTRA-PHOS 250 MG TABLET PO SCH ×2 (08:37→10:43)
[2019-12-25] MEDS: SACCHAROMYCES BOULARDII 250 MG CAPSULE PO SCH ×2 (08:37→18:06)
[2019-12-25] MEDS: ACETAMINOPHEN 325 MG TABLET PO PRN ×4 (09:01→23:48)
[2019-12-25] MEDS: ENOXAPARIN 40 MG/0.4 ML SYRINGE SUBQ SCH (09:06)
[2019-12-25] MEDS: NYSTATIN 500000 UNITS/5 ML UDC PO SCH ×4 (10:00→21:19)
--- NOTE | 2019-12-25 14:16 | XRAY Report ---
PROCEDURE: Hip w/Pelvis 2-3V RT INDICATIONS: R buttock pain after fall at home TECHNIQUE: AP pelvis with lateral view(s) of the right hip(s). COMPARISON: None. FINDINGS: Bones: . Hypertrophy of the left pubic bone may be healed deformity of remote fracture. No acute jenny earing fractures. Mild degenerative changes in the femoral acetabular joints. Pelvic ring appears in tact. No suspicious bony lesions. Soft tissues: The visualized bowel gas pattern is normal. No suspicious soft tissue calcifications. IMPRESSION: 1. No acute fracture or dislocation. 2. Deformity of the left pubic bone, possibly secondary to remote, healed fracture. Reviewed by: Kaylah Lopez MD on 12/25/2019 1:14 PM [place] Approved by: Kaylah Lopez MD on 12/25/2019 1:14 PM [place] Station ID: [id number]
--- NOTE | 2019-12-25 17:18 | PROVIDER PROGRESS NOTE ---
Assessment/Plan - Problem List (1) Right hip pain Assessment/Plan: There is a lump over the ischial tuberosity which is where he fell at home, apparently. We will order hip and pelvic x-rays to rule out fracture dislocation (2) Anemia Assessment/Plan: Admission hemoglobin was 11 which dropped to 9 and today is 8.6. Likely hemo-dilutional since he is 5 L or more positive and fluid balance since admission We will check iron stores and B12, folate levels and replace if (3) Hypokalemia Assessment/Plan: This is likely multifactorial and due to poor oral intake, the use of a thiazide diuretic, and his significant metabolic alkalosis. His potassium is less than 1.5. This is likely the cause of his overall generalized weakness as well as his EKG changes. His magnesium is also decreased at 1.3. At this time, we will replace his magnesium orally and intravenously. We will replace his potassium aggressively orally and intravenously and fortunately a central line was placed by the ER provider. We will recheck a BMP this evening. We will monitor on telemetry. Hold his hydrochlorothiazide. Will consider checking aldosterone and renin activity if there is no improvement. December 22: With aggressive riders, potassium went from less than 1.5-1.6. He has been given more riders and is 2.4. Plan: Initiate ICU protocol. This is for electrolyte replacement. His diarrhea is slowing down and is down to 2 bowel movements today. December 23: He has steadily increased the potassium from his undetectable less than 1.5 level. Today he is finally normal at 3.6. Plan: ICU electrolyte protocol will drop off his order sets since he is being transferred to [facility]. We will continue to monitor closely on a daily basis. If his potassium and sodium are normal tomorrow he may be able to go home. 12/24: Replace with po and riders If stable tomorrow, expected Dch home (4) Hypomagnesemia Assessment/Plan: His magnesium was decreased at 1.3. We will replace this intravenously and orally prior to potassium supplementation as this will need to be corrected before his potassium can be corrected. We will continue to monitor on a daily basis. 12/22: Supplemented and is 2.1 today. On ICU replacement protocol. 12/23: Normal today. Phosphorus low. We will supplement that. 12/24: Replace Expect improvement with replacement and dch tomorrow (5) Alcohol abuse Assessment/Plan: Alcohol level is less than 5 on admission. His last drink was reportedly the day of admission. He had no signs of alcohol with drawal this admission Continue oral thiamine and multivitamin. Social work consult to assist with alcohol cessation. (6) Oral candidiasis Assessment/Plan: From inhaled steroids Oral Nystatin swiish and swallow ordered. (7) Abnormal EKG Assessment/Plan: EKG revealed a sinus rhythm with a prolonged NH interval as well as frequent PVCs and a prolonged QTC of 661. His QRS is also prolonged at 127. There also appears to be ST depressions in the inferior leads and U waves present as well. This is likely due to his significant hypokalemia. His initial troponin is mildly elevated. At this time, we will replace his potassium aggressively. We will monitor him on telemetry. Trend his troponins. December 22: Telemetry had a few beats of nonsustained V. tach. Those resolved on their own. Troponin was 21.2 on admission. Repeat troponin was 22.6. No further trending down. December 23: No further arrhythmias. EKG done to confirm improvement in QT interval 12/24: Stable on telemetry (8) Hx of essential hypertension Assessment/Plan: Stable BP on resumed meds (9) History of COPD Assessment/Plan: Stable and not in exacerbation. Will continue his home inhalers. (10) Bipolar disorder Assessment/Plan: Meds resumed. (11) Nausea, vomiting, and diarrhea Assessment/Plan: Resolved (12) Hyponatremia Assessment/Plan: Resolved (13) Metabolic alkalosis Assessment/Plan: Resolved - Current Meds Current Meds: Current Medications Generic Name Dose Route Start Last Admin Trade Name Freq PRN Reason Stop Dose Admin Acetaminophen 650 mg 12/22/19 21:33 12/25/19 13:31 Tylenol PO 650 mg Q4HR PRN Administration Pain 1 to 4 Carvedilol 6.25 mg 12/23/19 11:34 12/25/19 08:36 Coreg PO 6.25 mg BID DHARA Administration Folic Acid 1 mg 12/23/19 09:00 12/25/19 08:35 PO 1 mg DAILY DHARA Administration Gabapentin 600 mg 12/23/19 06:00 12/25/19 13:30 Neurontin PO 600 mg TID DHARA Administration Lamotrigine 50 mg 12/23/19 09:00 12/25/19 08:33 Lamictal PO 50 mg DAILY DHARA Administration Multivitamins 1 tab 12/23/19 08:00 12/25/19 08:33 Theragran PO 1 tab DAILYWM DHARA Administration Nystatin 5 ml 12/22/19 23:00 12/25/19 13:35 Mycostatin PO 5 ml QID HDARA Administration Pantoprazole Sodium 40 mg 12/25/19 07:00 12/25/19 06:03 Protonix PO 40 mg QDAC DHARA Administration Saccharomyces Boulardii 250 mg 12/24/19 17:00 12/25/19 08:37 Florastor PO 250 mg BIDWM DHARA Administration Sodium Chloride 10 ml 12/23/19 01:00 12/25/19 08:43 Normal Saline Flush 0.9% IVP 10 ml 0100,0900,1700 DHARA Administration Sodium Chloride 10 ml 12/22/19 21:33 12/24/19 04:51 Normal Saline Flush 0.9% IVP 30 ml PRN PRN Administration NEEDED PER PROVIDER ORDERS Thiamine HCl 100 mg 12/23/19 09:00 12/25/19 08:35 Vitamin B-1 PO 100 mg DAILY DHARA Administration - Lab Result Fish Bone Diagrams: 12/25/19 04:43 12/25/19 04:43 Subjective - Subjective Patient Reports: Feeling Better, Resting Comfortably, Pain (Complains of pain over the right buttock and the nurse can feel a "lump" there, and the spot where he fell) Objective Vital Signs: Vital Signs - 24 hr 12/24/19 12/24/19 12/25/19 19:20 21:00 04:46 Temperature 37.0 C 36.6 C Heart Rate [ 79 81 68 Monitoring electrodes] Heart Rate [ Radial] Respiratory 16 16 Rate Blood Pressure 114/84 H 117/74 121/88 H [Right Brachial artery] O2 Saturation 100 98 12/25/19 12/25/19 09:10 16:30 Temperature 36.6 C 36.9 C Heart Rate [ Monitoring electrodes] Heart Rate [ 86 71 Radial] Respiratory 24 18 Rate Blood Pressure 121/70 110/69 [Right Brachial artery] O2 Saturation 96 98 Oxygen O2 Source Room air I&O (Last 24 Hrs): Intake and Output Totals x24h 12/23/19 12/24/19 12/25/19 23:59 23:59 23:59 Intake Total 5202.666 0540.497 810 Output Total 6688 976 605 Balance 5877.243 1653.333 55 General: Alert, Oriented x3 HEENT: EOMI, Mucous membr. moist/pink Neck: Supple, No JVD Neuro: Alert, Non Focal, Other (No nystagmus or asterixis) Cardiovascular: Regular rate Respiratory: No respiratory distress Abdomen: Soft Extremities: No edema - Results Results: Laboratory Results WBC 8.5 x10^3/uL (4.8-10.8) 12/25/19 04:43 RBC 2.67 10^6/uL (4.70-6.10) L 12/25/19 04:43 Hgb 8.6 g/dL (14.0-18.0) L 12/25/19 04:43 Hct 25.0 % (42.0-52.0) L 12/25/19 04:43 MCV 93.6 fL (80.0-94.0) 12/25/19 04:43 MCH 32.2 pg (27.0-31.0) H 12/25/19 04:43 MCHC 34.4 g/dL (32.0-36.0) 12/25/19 04:43 RDW 13.2 % (12.0-15.0) 12/25/19 04:43 Plt Count 177 10^3/uL (130-450) 12/25/19 04:43 MPV 9.7 fL (7.4-11.4) 12/25/19 04:43 Neut # (Auto) 4.8 10^3/uL (1.5-6.6) 12/25/19 04:43 Lymph # (Auto) 2.4 10^3/uL (1.5-3.5) 12/25/19 04:43 [place] # (Auto) 0.8 10^3/uL (0.0-1.0) 12/25/19 04:43 Eos # (Auto) 0.1 10^3/uL (0.0-0.7) 12/25/19 04:43 Baso # (Auto) 0.1 10^3/uL (0.0-0.1) 12/25/19 04:43 Absolute Nucleated RBC 0.00 x10^3/uL 12/25/19 04:43 Nucleated RBC % 0.0 /100WBC 12/25/19 04:43 VBG pH 7.596 (7.31-7.41) H 12/22/19 21:10 VBG pCO2 39.8 mmHg (41-51) L 12/22/19 21:10 VBG pO2 40.4 mmHg (25-47) 12/22/19 21:10 VBG HCO3 37.8 mmol/L (23-28) H 12/22/19 21:10 VBG Total CO2 39.1 mmol/L (24-29) H 12/22/19 21:10 VBG O2 Saturation 79.7 % (60-80) 12/22/19 21:10 VBG Base Excess 14.9 mmol/L (-2 - +2) H 12/22/19 21:10 Sodium 135 mmol/L (135-145) 12/25/19 04:43 Potassium 3.4 mmol/L (3.5-5.0) L 12/25/19 04:43 Chloride 98 mmol/L (101-111) L 12/25/19 04:43 Carbon Dioxide 31 mmol/L (21-32) 12/25/19 04:43 Anion Gap 6.0 (6-13) 12/25/19 04:43 BUN 7 mg/dL (6-20) 12/25/19 04:43 Creatinine 0.9 mg/dL (0.6-1.2) 12/25/19 04:43 Estimated GFR (MDRD) 86 (>89) L 12/25/19 04:43 Glucose 91 mg/dL (70-100) 12/25/19 04:43 Uric Acid 6.1 mg/dL (2.6-7.2) 12/23/19 04:32 Calcium 8.5 mg/dL (8.5-10.3) 12/25/19 04:43 Phosphorus 2.4 mg/dL (2.5-4.6) L 12/25/19 04:43 Magnesium 1.7 mg/dL (1.7-2.8) 12/25/19 04:43 Total Bilirubin 3.4 mg/dL (0.2-1.0) H 12/22/19 20:11 AST 35 IU/L (10-42) 12/22/19 20:11 ALT 28 IU/L (10-60) 12/22/19 20:11 Alkaline Phosphatase 72 IU/L (42-121) 12/22/19 20:11 Total Creatine Kinase 277 IU/L (22-269) H 12/22/19 23:56 Troponin I High Sens 22.6 ng/L (2.3-19.7) H* 12/22/19 23:56 Total Protein 6.2 g/dL (6.7-8.2) L 12/22/19 20:11 Albumin 2.8 g/dL (3.2-5.5) L 12/24/19 04:44 Globulin 2.7 g/dL (2.1-4.2) 12/22/19 20:11 Albumin/Globulin Ratio 1.3 (1.0-2.2) 12/22/19 20:11 Lipase 46 U/L (22-51) 12/22/19 20:11 TSH 0.88 uIU/mL (0.34-5.60) 12/23/19 04:32 Cortisol AM Sample 13.6 ug/dL 12/23/19 07:52 Urine Color ORANGE 12/22/19 21:40 Urine Clarity CLEAR (CLEAR) 12/22/19 21:40 Urine pH 6.5 PH (5.0-7.5) 12/22/19 21:40 Ur Specific [place] 1.020 (1.002-1.030) 12/22/19 21:40 Urine Protein TRACE mg/dL (NEGATIVE) 12/22/19 21:40 Urine Glucose (UA) NEGATIVE mg/dL (NEGATIVE) 12/22/19 21:40 Urine Ketones TRACE mg/dL (NEGATIVE) 12/22/19 21:40 Urine Occult Blood TRACE-LYSE (NEGATIVE) 12/22/19 21:40 Urine Nitrite NEGATIVE (NEGATIVE) 12/22/19 21:40 Urine Bilirubin NEGATIVE (NEGATIVE) 12/22/19 21:40 Urine Urobilinogen 2 E.U./dL (NORMAL) H 12/22/19 21:40 Ur Leukocyte Esterase NEGATIVE (NEGATIVE) 12/22/19 21:40 Ur Microscopic Review NOT INDICATED 12/22/19 21:40 Urine Culture Comments NOT INDICATED 12/22/19 21:40 Ur Random Chloride 96 mmol/L 12/22/19 21:40 Urine Sodium 60.0 mmol/L 12/22/19 21:40 Nasal Screen MRSA (PCR) NEGATIVE (NEGATIVE) 12/22/19 22:45 Stl C. diff Tox B Gene NEGATIVE (NEGATIVE) 12/23/19 10:00 Ethyl Alcohol < 5.0 mg/dL 12/22/19 20:11 - Procedures Procedures: Procedures EXCISION OF ESOPHAGUS, ENDO (09/14/18) INSPECTION OF UPPER INTESTINAL TRACT, ENDO (01/19/18)
[2019-12-25] MEDS: oxyCODONE 5 MG TABLET PO PRN (21:19)
[2019-12-26] MEDS: oxyCODONE 5 MG TABLET PO PRN ×2 (01:33→06:41)
[2019-12-26 05:49] LABS: BASOPHILS # (AUTO) 0.1 10^3/uL (0.0-0.1); EOSINOPHILS # (AUTO) 0.1 10^3/uL (0.0-0.7); EOSINOPHILS % (AUTO) 1.3 %; HGB - HEMOGLOBIN 8.9 g/dL (14.0-18.0); LYMPHOCYTES # (AUTO) 2.3 10^3/uL (1.5-3.5); LYMPHOCYTES % (AUTO) 20.8 %; MEAN CORPUSCULAR HEMOGLOBIN 32.8 pg (27.0-31.0); MEAN CORPUSCULAR HGB CONC 34.5 g/dL (32.0-36.0); MEAN CORPUSCULAR VOLUME 95.2 fL (80.0-94.0); MEAN PLATELET VOLUME 9.6 fL (7.4-11.4); MONOCYTES # (AUTO) 0.6 10^3/uL (0.0-1.0); MONOCYTES % (AUTO) 5.8 %; NEUTROPHILS # (AUTO) 6.8 10^3/uL (1.5-6.6); NEUTROPHILS % (AUTO) 61.4 %; PLT - PLATELET COUNT 212 10^3/uL (130-450); RED BLOOD COUNT 2.71 10^6/uL (4.70-6.10); RED CELL DISTRIBUTION WIDTH 13.8 % (12.0-15.0); WHITE BLOOD COUNT 11.1 x10^3/uL (4.8-10.8)
[2019-12-26 06:09] LABS: CALCIUM 8.5 mg/dL (8.5-10.3); MAGNESIUM 1.8 mg/dL (1.7-2.8)
[2019-12-26 06:30] LABS: FOLATE 6.65 ng/mL (5.90 - >24.8)
[2019-12-26] MEDS: PANTOPRAZOLE 40 MG TABLET PO SCH (06:31)
[2019-12-26] MEDS: ACETAMINOPHEN 325 MG TABLET PO PRN (06:31)
[2019-12-26] MEDS: GABAPENTIN 300 MG CAPSULE PO SCH (06:32)
--- NOTE | 2019-12-26 08:43 | Discharge Plan ---
Discharge Plan Problem Reviewed?: Yes Disposition: Home, Self Care Condition: Stable Prescriptions: L. Acidophilus/Pectin, [place] [Acidophilus Capsule] 1 each PO BID #30 capsule Diphenoxylate/Atropine [Lomotil] 1 tab PO TID PRN #30 tablet PRN Reason: Diarrhea Multivit No46/Iron/Folate6/Dha [Prenate Essential Softgel] 1 each PO DAILY #30 capsule Thiamine [Vitamin B-1] 100 mg PO DAILY #30 tablet Diet: Regular Activity Restrictions: Activity as Tolerated Shower Restrictions: No Driving Restrictions: No Instruction Topics: Addiction Alcohol Health Concerns: You were admitted for severe dehydration, very low potassium level and electrolyte abnormalities, and required admission into the ICU for management. You should remain off alcohol and stay well-hydrated using electrolyte- containing liquids, such as Gatorade or broths. Resume all your pre-hospital medications except limit the use of Motrin which can give you stomach bleeding, and do not take the HCTZ since it will dehydrate you. There are 4 new prescriptions: 2 vitamins and 2 medicines to help with diarrhea. These were electronically sent to your [facility] pharmacy in [place]. Remain abstinent off of alcohol; our social workers provided you with resources for helping you with alcohol abuse. Plan of Treatment: As above. Care Goals: Improvement in symptoms and stabilization are the goals. Assessment: Patient understands and is agreeable with the plan. Additional Instructions or Follow Up instructions: See your PCP in the next 1 to 2 weeks for hospital follow-up. No Smoking: If you smoke, Please STOP! Call for help.
[2019-12-26] MEDS: lamoTRIgine 100 MG TABLET PO SCH (08:49)
[2019-12-26] MEDS: MULTIVITAMIN TABLET PO SCH (08:49)
[2019-12-26] MEDS: FOLIC ACID 1 MG TABLET PO SCH (08:49)
[2019-12-26] MEDS: carvediloL 3.125 MG TABLET PO SCH (08:49)
[2019-12-26] MEDS: SACCHAROMYCES BOULARDII 250 MG CAPSULE PO SCH (08:50)
[2019-12-26] MEDS: NYSTATIN 500000 UNITS/5 ML UDC PO SCH (08:50)
[2019-12-26 08:56] VITALS: BP 138/82
--- NOTE | 2019-12-26 09:19 | DISCHARGE SUMMARY ---
Discharge Summary Admit Date: 12/22/19 Discharge Date: 12/26/19 Discharging Provider: Dr Selma Terrell Primary Care Provider: MARZENA Harris (or his replacement) Code Status: Attempt Resuscitation Condition at Discharge: Stable Discharge Disposition: 01 Home, Self Care - HPI History of Present Illness: From the admission H&P of Dr Earl Lechugaf: This is a 59-year-old male with a past medical history significant for bipolar disorder, depression, hypertension, alcohol abuse, COPD who presents today complaining of dizziness and lightheadedness for the past month. He states his symptoms began about 1 month ago and have steadily progressed. He reports that whenever he gets out of bed, he feels dizzy and lightheaded and that he has fallen a couple times because of this. He reports no loss of consciousness. He states he may have hit his head one time on his refrigerator slightly when he fell otherwise denies any trauma to his head. He reports no palpitations. Denies chest pain but reports some dyspnea. He states that over the past 3 weeks or so, he has had persistent nausea and nonbloody emesis. He reports no associated abdominal pain. He states he has had poor oral intake over this past 3 weeks because of this. He states he had no food at all today or yesterday and his oral intake has been really limited for past 3 weeks. He tried some water but he would vomit that up. He states that he is able to keep liquor down. He has been drinking 2-3 [place] a day for around the past 6 weeks. His last drink was this morning. He states he had been sober for about 2 years but began drinking again about 6 weeks ago because of COVID and lack of personal interaction. He had been going to the [facility] where he began to drink alcohol again. He reports no NSAID use. He is on omeprazole at home. He reports no diarrhea or constipation. He states he feels thirsty at this time. He does take hydrochlorothiazide for blood pressure. He is also on Lamictal and Fluoxetine for his history of bipolar disorder and depression. In the emergency department, he was found to be afebrile with a temperature of 36.6 C. His heart rate was 78. Blood pressure is 168/74. He was not tachypneic and was saturating well on room air. In the emergency department, labs were significant for sodium of 116. His serum potassium was not detectable (less than 1.5). His chloride was 66. His bicarbonate was elevated at 37. Magnesium was 1.3. VBG revealed a pH of 7.596 with a PCO2 of 39.8 and a bicarbonate of 37.8. Initial troponin was 21.8. Given the above findings, the Hospitalist was consulted for admission. I did discuss goals of care with the patient and he would like to be a full code. - HOSPITAL COURSE Hospital Course: (1) Hypokalemia This was likely multifactorial: due to very poor oral intake, GI losses in diarrhea, use of a thiazide diuretic, and his significant metabolic alkalosis. His potassium was less than 1.5 at admission. This was likely the cause of his overall generalized weakness as well as his EKG changes. He was admitted to the ICU on telemetry and potassium was aggressively replaced orally and intravenously. We did not resume the hydrochlorothiazide during this hospital stay. The Potassium improved from 1.5>> 1.6>> 2.4>> 3.6>> 3.4>> and 3.7 at discharge. (2) Hyponatremia This was hypovolemic hyponatremia secondary to the use of thiazide as well as nausea and vomiting and beer potomania. His sodium was 116 on admission. This is likely contributing to his overall weakness along with the hypokalemia. He received a liter of normal saline in the emergency department and was continued on maintenance IV fluids using normal saline with goal correction 6 to 8 mmol/L over 24 hours. We continued to hold his home hydrochlorothiazide. His TSH level was 0.88. Cortisol was normal at 13.6. He responded to IV hydration and 1000 cc/day total fluid restriction then 1500 cc/day then liberalized. Sodium went from 117>> 125>> 127>> 134>> 137 at discharge. (3) Metabolic alkalosis His bicarbonate was elevated at nearly 40 and his pH was nearly 7.6 on venous blood gas. Suspect this was contraction alkalosis secondary to his nausea and vomiting as well as using a thiazide diuretic. This corrected with gentle hydration with IV saline. (4) Diarrhea with Nausea and vomiting Suspect this was from alcoholic gastritis since N/V stopped and diarrhea decreased once he stopped alcohol intake and we started hydrating him. He was on prn NSAIDs at home as well. He was put on Protonix IV. Diet was advanced as tolerated to a regular diet with a good appetite at discharge. The diarrhea was tested for and was C. difficile negative. He was discharged home with several tablets of Lomotil to take prn. (5) Hypomagnesemia His magnesium was decreased at 1.3. It was replaced iv and po. (6) Hypophosphatemia This was also depleted and was replaced. (7) Abnormal EKG EKG showed a sinus rhythm with a prolonged NM interval as well as frequent PVCs and a prolonged QTC of 661 msec. His QRS was also prolonged at [address] depressions in the inferior leads and U waves present. This was likely due to his significant hypokalemia. We did see a few short runs of nonsustained V. tach. Those resolved on their own. Troponin was unremarkable at 21.2 then 22.6. (8) Alcohol abuse Alcohol level was less than 5 on admission. His last drink was that morning. He received iv Banana bag then transitioned to oral thiamine and multivitamin. We monitored for signs of withdrawal and he had none. Social work consulted to provide alcohol cessation resources. (9) Oral candidiasis He had this from his inhaled corticosteroid, which was treated with oral nystatin. (10) Hx of essential hypertension He was briefly hypertensive then hypotensive throughout, with a blood pressure of 90-105/60-70. We did not resume his home hydrochlorothiazide given the hyp onatremia. (11) History of COPD Stable and not in exacerbation this admission. Will continued his home inhalers. (12) Depression Stable. His home meds were resumed when QTc improved. (13) Anemia Serum levels of B12 and Folate levels were normal and Iron saturation was normal, but transferrin and TBG were low, likely due to poor diet. (14) R hip pain On the day before discharge he complained of pain of his R buttock and said he had fallen on that before admission. Xrays were done and showed no fractures or dislocation. - ALLERGIES Allergies/Adverse Reactions: Allergies Allergy/AdvReac Type Severity Reaction Status Date / Time avocado Allergy Unknown Verified 12/22/19 19:13 - MEDICATIONS Home Medications: Ambulatory Orders Medication Instructions Recorded Confirmed Fluoxetine HCl 20 mg PO DAILY 08/01/18 12/23/19 Mometasone Furoate [Asmanex] 2 puffs PO BID 08/01/18 12/23/19 Omeprazole 20 mg PO BID 08/01/18 12/23/19 Tiotropium [place] [Spiriva] 1 puffs PO DAILY 08/01/18 12/23/19 carvediloL [Carvedilol] 6.25 mg PO BID 08/01/18 12/23/19 traZODone [Desyrel] 25 mg PO DAILY PRN 08/01/18 12/23/19 Cyanocobalamin (Vitamin B-12) 500 mcg PO DAILY 09/14/18 12/23/19 [Vitamin B-12] Folic Acid 1 mg PO DAILY 09/14/18 12/23/19 Albuterol Sulfate [Albuterol 2 puffs INH Q4H PRN 11/20/18 12/23/19 Sulfate Hfa] lamoTRIgine [LaMICtal] 50 mg PO DAILY 11/20/18 12/23/19 Pregabalin [Lyrica] 200 mg PO BID 12/23/19 12/23/19 Diphenoxylate/Atropine [Lomotil] 1 tab PO TID PRN #30 tablet 12/26/19 L. Acidophilus/Pectin, [place] 1 each PO BID #30 capsule 12/26/19 [Acidophilus Capsule] Multivit No46/Iron/Folate6/Dha 1 each PO DAILY #30 capsule 12/26/19 [Prenate Essential Softgel] Thiamine [Vitamin B-1] 100 mg PO DAILY #30 tablet 12/26/19 - PHYSICAL EXAM AT DISCHARGE General Appearance: positive: No acute distress, Alert Eyes Bilateral: positive: Normal inspection, EOMI ENT: positive: ENT inspection nml, No signs of dehydration Neck: positive: Nml inspection, No JVD Respiratory: positive: No respiratory distress, Breath sounds nml Cardiovascular: positive: Regular rate & rhythm, No murmur Abdomen: positive: Non-tender, Nml bowel sounds, No distention Skin: positive: Color nml, Warm, Dry Extremities: positive: No pedal edema Neurologic/Psychiatric: positive: Oriented x3 (Non-focal) - LABS Result Diagrams: 12/26/19 05:20 12/26/19 05:20 - DIAGNOSTIC IMAGING Diagnostic Imaging Results: Final report reviewed - FOLLOW UP Follow Up: See PCP (replacement of MARZENA Harris) in 5-10 days. - TIME SPENT Time Spent in Discharge (Minutes): 60
== END 2019-12-26 12:50 | disposition home or self-care (01) | DRG 918 ==
LOC: EDUNIT# → ED 19:04 → ICU 21:33 → MS2 12-25 18:30
PROVIDERS: ADMIT Internal Medicine; ATTEND Internal Medicine
DX: T50.2X1A Poisoning by carbonic-anhydrase inhibitors, benzothiadiazides and other diuretics, accidental (unintentional), initial encounter (principal); E87.3 Alkalosis; E87.1 Hypo-osmolality and hyponatremia; B37.0 Candidal stomatitis; E87.6 Hypokalemia; F31.9 Bipolar disorder, unspecified; E86.0 Dehydration; I10 Essential (primary) hypertension; F41.9 Anxiety disorder, unspecified; J44.9 Chronic obstructive pulmonary disease, unspecified; D64.9 Anemia, unspecified; Y92.9 Unspecified place or not applicable; R19.7 Diarrhea, unspecified; R11.2 Nausea with vomiting, unspecified; E83.42 Hypomagnesemia; E83.39 Other disorders of phosphorus metabolism; R94.31 Abnormal electrocardiogram [ECG] [EKG]; F10.10 Alcohol abuse, uncomplicated; Y90.0 Blood alcohol level of less than 20 mg/100 ml; F17.210 Nicotine dependence, cigarettes, uncomplicated; M25.551 Pain in right hip; E78.00 Pure hypercholesterolemia, unspecified; K21.9 Gastro-esophageal reflux disease without esophagitis; K44.9 Diaphragmatic hernia without obstruction or gangrene; H91.90 Unspecified hearing loss, unspecified ear; Z79.51 Long term (current) use of inhaled steroids; Z79.899 Other long term (current) drug therapy; Z96.659 Presence of unspecified artificial knee joint
CPT/HCPCS: 36415; 36556; 71045; 73502; 80048; 80053; 80320; 81003; 82040; 82436; 82533; 82550; 82607; 82746; 82803; 83540; 83690; 83735; 83935; 84100; 84132; 84300; 84443; 84466; 84484; 84550; 85025; 87150; 87493; 93005; 96360; 97161; 99291; A9270; J1650; J3411; 81001; 81599; 87045; 87046; 87086

== ENCOUNTER 2020-07-27 14:16 | Outpatient (CLI) | payer OTHER ==
[2020-07-27 16:57] LABS: FECAL OCCULT BLOOD (FIT) POSITIVE (NEGATIVE)
== END 2020-07-27 23:59 | disposition home or self-care (01) ==
LOC: LAB.R 14:16
PROVIDERS: ATTEND Registered Nurse
DX: K92.1 Melena (principal)
CPT/HCPCS: 82274